=== PATIENT | female | born 1955 | race Caucasian/White ===

== ENCOUNTER 2017-11-26 13:11 | Emergency (ER) | payer OTHER ==
[~2017-11-26] VITALS: Ht 160 cm; Wt 113.4 kg
[~2017-11-26 13:11] MED LIST: ABAT250V; ACIDOPHILUS LA1 EACH PO; BUSP15 PO; CEFD300 PO; DIPH25 PO; FLUC200 PO; GLIP10 PO; GLIP5 PO; HYDCHL25 PO; HYDCHL50 PO; IBUP400 PO; IBUP800 PO; LEVFLO500 PO; LEVSOD150 PO; LISI20 PO; LORA2 PO; LOSHYD; METF500; Micro-K10 MEQ PO; NAPR550 PO; NITR100 PO; OXYACE5T PO; PROM25 PO; Pedi-Dri 100,0060 GM TOP; THYR60 PO; TIZA4 PO; TRAZ100 PO; Temazepam15 MG PO; Zanaflex4 M1 PO; [UNRECOGNIZED DRUG - OTHER]
[2017-11-26 14:00] LABS: BASOPHILS ABSOLUTE AUTO 0.04 K/mm3 (0.00-0.23); BASOPHILS PERCENT AUTO 0 % (0-2); EOSINOPHILS ABSOLUTE AUTO 0.23 K/mm3 (0.00-0.68); EOSINOPHILS PERCENT AUTO 2 % (0-6); Hemoglobin 13.2 g/dL (11.5-16.0); IMMATURE GRAN ABSOLUTE AUTO 0.08 K/mm3 (0.00-0.10); IMMATURE GRAN PERCENT AUTO 1 % (0-1); LYMPHOCYTES ABSOLUTE AUTO 1.89 K/mm3 (0.84-5.20); LYMPHOCYTES PERCENT AUTO 14 % (21-46); MONOCYTES ABSOLUTE AUTO 1.01 K/mm3 (0.16-1.47); MONOCYTES PERCENT AUTO 7 % (4-13); Mean Corpuscular HGB 30.3 pg (26.0-34.0); Mean Corpuscular Volume 92 fL (80-100); Mean Platelet Volume 10.6 fL (9.1-12.4); NEUTROPHILS PERCENT AUTO 76 % (41-73); Platelet Count 246 K/mm3 (150-400); RDW Standard Deviation 42.9 fL (35.1-46.3); Red Blood Cell Count 4.36 M/mm3 (3.80-5.20); White Blood Cell Count 13.75 K/mm3 (4.00-11.30)
[2017-11-26 14:07] LABS: Source, Urine Clean Catch
[2017-11-26 14:14] LABS: Bilirubin, Urine Neg (Neg); Blood, Urine Neg (Neg); Glucose Qualitative, Urine Neg (Neg); Ketones, Urine Neg (Neg); Leukocyte Esterase, Urine Neg (Neg); Nitrite, Urine Neg (Neg); Protein, Urine 1+ (Neg); Urobilinogen, Urine NORM (Normal)
[2017-11-26 14:14] LABS: Alanine Aminotransfer (ALT/SGP 25 U/L (12-78); Albumin, Blood 3.8 g/dL (3.4-5.0); Albumin/Globulin Ratio 0.8 (0.8-1.8); Alk Phos 133 U/L (50-136); Anion Gap 10 mmol/L (6-16); Aspartate Aminotrans (AST/SGOT 13 U/L (12-37); Bilirubin, Total 0.5 mg/dL (0.1-1.0); Blood Urea Nitrogen 26 mg/dL (8-24); Bun/Creatinine Ratio 21.1 (12.0-20.0); CO2, Blood 20 mmol/L (21-32); Calcium, Blood 9.1 mg/dL (8.5-10.1); Chloride, Blood 103 mmol/L (98-108); Creatinine, Blood 1.23 mg/dL (0.40-1.00); Ethanol (Alcohol), Blood, Med <3 mg/dL; Glomerular Filtration Rate 47 (60-); Glucose, Blood 156 mg/dL (70-99); Sodium, Blood 133 mmol/L (136-145); Total Protein, Blood 8.8 g/dL (6.4-8.2)
[2017-11-26 14:20] LABS: Appearance, Urine Clear (Clear); Color, Urine Yellow (P-Yellow)
[2017-11-26 14:24] LABS: U Amphetamine Screen Not Detected; U Barbituate Screen Not Detected; U Benzodiazapine Screen DETECTED; U Cannabinoids Screen Not Detected; U Cocaine Screen Not Detected; U Methadone Screen Not Detected; U Methamphetamine Screen Not Detected; U Opiates Screen Not Detected; U Phencyclidine Screen Not Detected
[2017-11-26 14:25] LABS: U Buprenorphine Screen Not Detected; U Oxycodone Screen Not Detected; U Propoxyphene Screen Not Detected
[2017-11-26 14:45] LABS: Salicylate 1.9 mg/dL (2.8-20.0)
[2017-11-26 14:52] LABS: Acetaminophen, Random <2.0 ug/mL (10.0-30.0)
== END 2017-11-26 16:08 | disposition home or self-care (01) ==
LOC: ER 13:11
PROVIDERS: Emergency Medicine
DX: T48.201A Poisoning by unspecified drugs acting on muscles, accidental (unintentional), initial encounter (principal); I10 Essential (primary) hypertension; E78.5 Hyperlipidemia, unspecified; E66.9 Obesity, unspecified; F41.9 Anxiety disorder, unspecified; Z95.2 Presence of prosthetic heart valve; Z90.49 Acquired absence of other specified parts of digestive tract; Z90.710 Acquired absence of both cervix and uterus
CPT/HCPCS: 36415; 71046; 80053; 82947; 85025; 93005; 93010; 99284; G0480

== ENCOUNTER → 2017-12-04 | Outpatient (CLI) | payer OTHER ==
[~2017-12-04] MED LIST changes: +CEPH500 PO; +METO50ER PO; +PANT40 PO; +TRAM50 PO
[2017-12-04 10:50] LABS: BASOPHILS ABSOLUTE AUTO 0.06 K/mm3 (0.00-0.23); BASOPHILS PERCENT AUTO 1 % (0-2); EOSINOPHILS ABSOLUTE AUTO 0.09 K/mm3 (0.00-0.68); EOSINOPHILS PERCENT AUTO 1 % (0-6); Hemoglobin 11.8 g/dL (11.5-16.0); IMMATURE GRAN ABSOLUTE AUTO 0.06 K/mm3 (0.00-0.10); IMMATURE GRAN PERCENT AUTO 1 % (0-1); LYMPHOCYTES ABSOLUTE AUTO 1.53 K/mm3 (0.84-5.20); LYMPHOCYTES PERCENT AUTO 12 % (21-46); MONOCYTES ABSOLUTE AUTO 0.98 K/mm3 (0.16-1.47); MONOCYTES PERCENT AUTO 8 % (4-13); Mean Corpuscular HGB 31.1 pg (26.0-34.0); Mean Corpuscular HGB Conc 33.7 g/dL (31.5-36.5); Mean Corpuscular Volume 92 fL (80-100); Mean Platelet Volume 9.8 fL (9.1-12.4); NEUTROPHILS ABSOLUTE AUTO 10.14 K/mm3 (1.96-9.15); NEUTROPHILS PERCENT AUTO 79 % (41-73); Platelet Count 273 K/mm3 (150-400); RDW Coefficient Variation 13.6 % (11.7-14.2); RDW Standard Deviation 45.6 fL (35.1-46.3); Red Blood Cell Count 3.79 M/mm3 (3.80-5.20); White Blood Cell Count 12.86 K/mm3 (4.00-11.30)
[2017-12-04 11:06] LABS: Albumin, Blood 3.4 g/dL (3.4-5.0); Albumin/Globulin Ratio 0.7 (0.8-1.8); Bilirubin, Total 0.4 mg/dL (0.1-1.0); Bun/Creatinine Ratio 22.1 (12.0-20.0); Calcium, Blood 9.7 mg/dL (8.5-10.1); Creatinine, Blood 0.95 mg/dL (0.40-1.00); Globulin, Blood 4.8 g/dL (2.2-4.0); Potassium, Blood 3.2 mmol/L (3.5-5.5); Total Protein, Blood 8.2 g/dL (6.4-8.2)
== END ==
LOC: LAB EV 10:47
PROVIDERS: Family Medicine
DX: N18.3 Chronic kidney disease, stage 3 (moderate) (principal)
CPT/HCPCS: 80053; 85025

== ENCOUNTER → 2018-05-02 | Outpatient (CLI) | payer OTHER ==
[~2018-05-02] MED LIST changes: -CEPH500 PO; -LISI20 PO; -METO50ER PO; -PANT40 PO; +Prinivil10 MG PO; -TRAM50 PO
== END ==
LOC: LAB SHORT 09:48 → LAB EV 09:48
DX: Z20.9 Contact with and (suspected) exposure to unspecified communicable disease (principal)
CPT/HCPCS: 87070

== ENCOUNTER 2018-05-16 15:44 | Inpatient (IN) | payer OTHER ==
[~2018-05-16] VITALS: Ht 160 cm; Wt 95.2 kg
[~2018-05-16 15:44] MED LIST changes: +LISI20 PO; -Prinivil10 MG PO
[2018-05-16 17:15] LABS: BASOPHILS ABSOLUTE AUTO 0.05 K/mm3 (0.00-0.23); BASOPHILS PERCENT AUTO 0 % (0-2); EOSINOPHILS ABSOLUTE AUTO 0.11 K/mm3 (0.00-0.68); EOSINOPHILS PERCENT AUTO 1 % (0-6); Hemoglobin 8.7 g/dL (11.5-16.0); IMMATURE GRAN ABSOLUTE AUTO 0.04 K/mm3 (0.00-0.10); IMMATURE GRAN PERCENT AUTO 0 % (0-1); LYMPHOCYTES ABSOLUTE AUTO 2.42 K/mm3 (0.84-5.20); LYMPHOCYTES PERCENT AUTO 18 % (21-46); MONOCYTES ABSOLUTE AUTO 1.03 K/mm3 (0.16-1.47); MONOCYTES PERCENT AUTO 8 % (4-13); Mean Corpuscular HGB 29.1 pg (26.0-34.0); Mean Corpuscular HGB Conc 32.2 g/dL (31.5-36.5); Mean Corpuscular Volume 90 fL (80-100); NEUTROPHILS ABSOLUTE AUTO 9.65 K/mm3 (1.96-9.15); NEUTROPHILS PERCENT AUTO 73 % (41-73); Platelet Count 353 K/mm3 (150-400); RDW Coefficient Variation 14.2 % (11.7-14.2); RDW Standard Deviation 46.4 fL (35.1-46.3); Red Blood Cell Count 2.99 M/mm3 (3.80-5.20)
[2018-05-16 17:28] LABS: International Normalized Ratio 1.02; Prothrombin Time Results 10.5 Sec (9.7-11.5)
[2018-05-16 17:42] LABS: Alanine Aminotransfer (ALT/SGP 15 U/L (12-78); Albumin, Blood 3.3 g/dL (3.4-5.0); Albumin/Globulin Ratio 0.8 (0.8-1.8); Alk Phos 102 U/L (50-136); Anion Gap 10 mmol/L (6-16); Aspartate Aminotrans (AST/SGOT 8 U/L (12-37); Bilirubin, Total 0.2 mg/dL (0.1-1.0); Blood Urea Nitrogen 15 mg/dL (8-24); Bun/Creatinine Ratio 16.3 (12.0-20.0); CO2, Blood 21 mmol/L (21-32); Calcium, Blood 8.8 mg/dL (8.5-10.1); Chloride, Blood 108 mmol/L (98-108); Creatinine, Blood 0.92 mg/dL (0.40-1.00); Globulin, Blood 4.3 g/dL (2.2-4.0); Glomerular Filtration Rate >60 (60-); Glucose, Blood 104 mg/dL (70-99); Potassium, Blood 3.3 mmol/L (3.5-5.5); Sodium, Blood 139 mmol/L (136-145); Total Protein, Blood 7.6 g/dL (6.4-8.2)
[2018-05-16] MEDS ORDERED: CEPH500 PO (17:53)
[2018-05-16] MEDS ORDERED: METO50ER PO (17:56)
[2018-05-16] MEDS ORDERED: TRAM50 PO (17:56)
[2018-05-16 21:38] LABS: Hematocrit 31.9 % (33.0-51.0); Hemoglobin 10.2 g/dL (11.5-16.0)
[2018-05-17 03:02] LABS: Hematocrit 23.7 % (33.0-51.0); Hemoglobin 7.6 g/dL (11.5-16.0); Mean Corpuscular HGB 28.3 pg (26.0-34.0); Mean Corpuscular HGB Conc 32.1 g/dL (31.5-36.5); Mean Corpuscular Volume 88 fL (80-100); Mean Platelet Volume 10.9 fL (9.1-12.4); Platelet Count 319 K/mm3 (150-400); RDW Coefficient Variation 14.3 % (11.7-14.2); RDW Standard Deviation 46.2 fL (35.1-46.3); Red Blood Cell Count 2.69 M/mm3 (3.80-5.20); White Blood Cell Count 14.83 K/mm3 (4.00-11.30)
[2018-05-17 10:02] LABS: Percent Saturation 9.1 % (15.0-50.0)
[2018-05-17 16:46] LABS: Hematocrit 25.7 % (33.0-51.0); Hemoglobin 8.3 g/dL (11.5-16.0)
[2018-05-18 05:32] LABS: BASOPHILS ABSOLUTE AUTO 0.04 K/mm3 (0.00-0.23); BASOPHILS PERCENT AUTO 0 % (0-2); EOSINOPHILS ABSOLUTE AUTO 0.34 K/mm3 (0.00-0.68); EOSINOPHILS PERCENT AUTO 3 % (0-6); Hematocrit 27.7 % (33.0-51.0); Hemoglobin 8.9 g/dL (11.5-16.0); IMMATURE GRAN ABSOLUTE AUTO 0.06 K/mm3 (0.00-0.10); IMMATURE GRAN PERCENT AUTO 1 % (0-1); LYMPHOCYTES PERCENT AUTO 27 % (21-46); MONOCYTES ABSOLUTE AUTO 1.01 K/mm3 (0.16-1.47); MONOCYTES PERCENT AUTO 10 % (4-13); Mean Corpuscular HGB 28.5 pg (26.0-34.0); Mean Corpuscular HGB Conc 32.1 g/dL (31.5-36.5); Mean Corpuscular Volume 89 fL (80-100); Mean Platelet Volume 10.8 fL (9.1-12.4); NEUTROPHILS ABSOLUTE AUTO 5.96 K/mm3 (1.96-9.15); NEUTROPHILS PERCENT AUTO 58 % (41-73); Platelet Count 324 K/mm3 (150-400); RDW Coefficient Variation 14.6 % (11.7-14.2); RDW Standard Deviation 47.2 fL (35.1-46.3); Red Blood Cell Count 3.12 M/mm3 (3.80-5.20); White Blood Cell Count 10.21 K/mm3 (4.00-11.30)
[2018-05-18 05:50] LABS: Alanine Aminotransfer (ALT/SGP 13 U/L (12-78); Albumin/Globulin Ratio 0.7 (0.8-1.8); Alk Phos 100 U/L (50-136); Anion Gap 7 mmol/L (6-16); Aspartate Aminotrans (AST/SGOT 14 U/L (12-37); Bilirubin, Total 0.4 mg/dL (0.1-1.0); Blood Urea Nitrogen 12 mg/dL (8-24); Bun/Creatinine Ratio 16.1 (12.0-20.0); CO2, Blood 27 mmol/L (21-32); Calcium, Blood 8.5 mg/dL (8.5-10.1); Chloride, Blood 106 mmol/L (98-108); Creatinine, Blood 0.75 mg/dL (0.40-1.00); Globulin, Blood 4.2 g/dL (2.2-4.0); Glomerular Filtration Rate >60 (60-); Glucose, Blood 79 mg/dL (70-99); Potassium, Blood 3.7 mmol/L (3.5-5.5); Sodium, Blood 140 mmol/L (136-145); Total Protein, Blood 7.2 g/dL (6.4-8.2)
[2018-05-19 05:08] LABS: BASOPHILS ABSOLUTE AUTO 0.06 K/mm3 (0.00-0.23); BASOPHILS PERCENT AUTO 1 % (0-2); EOSINOPHILS ABSOLUTE AUTO 0.32 K/mm3 (0.00-0.68); EOSINOPHILS PERCENT AUTO 3 % (0-6); Hematocrit 27.2 % (33.0-51.0); Hemoglobin 8.5 g/dL (11.5-16.0); IMMATURE GRAN ABSOLUTE AUTO 0.03 K/mm3 (0.00-0.10); IMMATURE GRAN PERCENT AUTO 0 % (0-1); LYMPHOCYTES ABSOLUTE AUTO 1.88 K/mm3 (0.84-5.20); LYMPHOCYTES PERCENT AUTO 19 % (21-46); MONOCYTES ABSOLUTE AUTO 1.13 K/mm3 (0.16-1.47); MONOCYTES PERCENT AUTO 11 % (4-13); Mean Corpuscular HGB 28.1 pg (26.0-34.0); Mean Corpuscular HGB Conc 31.3 g/dL (31.5-36.5); Mean Corpuscular Volume 90 fL (80-100); NEUTROPHILS ABSOLUTE AUTO 6.57 K/mm3 (1.96-9.15); NEUTROPHILS PERCENT AUTO 66 % (41-73); RDW Coefficient Variation 14.5 % (11.7-14.2); RDW Standard Deviation 47.8 fL (35.1-46.3); Red Blood Cell Count 3.02 M/mm3 (3.80-5.20); White Blood Cell Count 9.99 K/mm3 (4.00-11.30)
[2018-05-19 05:18] LABS: Mean Platelet Volume 11.6 fL (9.1-12.4); Platelet Count 240 K/mm3 (150-400)
[2018-05-19 05:26] LABS: Anion Gap 10 mmol/L (6-16); Blood Urea Nitrogen 11 mg/dL (8-24); Bun/Creatinine Ratio 14.8 (12.0-20.0); CO2, Blood 26 mmol/L (21-32); Calcium, Blood 8.4 mg/dL (8.5-10.1); Chloride, Blood 104 mmol/L (98-108); Creatinine, Blood 0.74 mg/dL (0.40-1.00); Glomerular Filtration Rate >60 (60-); Glucose, Blood 83 mg/dL (70-99); Potassium, Blood 3.9 mmol/L (3.5-5.5); Sodium, Blood 140 mmol/L (136-145)
[2018-05-19] MEDS ORDERED: PANT40 PO (09:06)
== END 2018-05-19 10:04 | disposition home or self-care (01) | DRG 379 ==
LOC: ER 15:44 → PCU 15:45 → MEDS 05-18 15:28 → ENPENDDIS 05-19 08:42 → MEDS 05-19 10:04
PROVIDERS: Emergency Medicine; Internal Medicine; Internal Medicine Gastroenterology
PROC: 30233N1 Transfusion of Nonautologous Red Blood Cells into Peripheral Vein, Percutaneous Approach (ICD-10-PCS; 2018-05-17)
PROC: 0DB68ZX Excision of Stomach, Via Natural or Artificial Opening Endoscopic, Diagnostic (ICD-10-PCS; principal; 2018-05-18 10:00)
DX: K25.4 Chronic or unspecified gastric ulcer with hemorrhage (principal); D50.9 Iron deficiency anemia, unspecified; F55.8 Abuse of other non-psychoactive substances; E11.9 Type 2 diabetes mellitus without complications; E87.6 Hypokalemia; E03.9 Hypothyroidism, unspecified; F41.9 Anxiety disorder, unspecified; I10 Essential (primary) hypertension; E66.9 Obesity, unspecified; D72.829 Elevated white blood cell count, unspecified; R29.6 Repeated falls; Z95.3 Presence of xenogenic heart valve; Z68.35 Body mass index [BMI] 35.0-35.9, adult; Z79.899 Other long term (current) drug therapy; Z79.1 Long term (current) use of non-steroidal anti-inflammatories (NSAID)
CPT/HCPCS: 36415; 36430; 80048; 80053; 82272; 82728; 82947; 83540; 83550; 85014; 85018; 85025; 85027; 85610; 85730; 86850; 86900; 86901; 86920; 88305; 88342; 93005; 93010; 97110; 97116; 97162; 99285-25; C9113; G8978; G8979; G8980; J2060; J2405; J2916; J3010; J7030; J7120; P9016

== ENCOUNTER 2018-11-17 17:52 | Inpatient (IN) | payer MEDICARE ==
[~2018-11-17] VITALS: Ht 162.6 cm; Wt 100.4 kg
[~2018-11-17 17:52] MED LIST changes: +CEPH500 PO; +METO50ER PO; +PANT40 PO; +TRAM50 PO
[2018-11-17 18:10] LABS: BASOPHILS ABSOLUTE AUTO 0.02 K/mm3 (0.00-0.23); BASOPHILS PERCENT AUTO 0 % (0-2); EOSINOPHILS PERCENT AUTO 0 % (0-6); Hematocrit 36.8 % (33.0-51.0); Hemoglobin 11.9 g/dL (11.5-16.0); IMMATURE GRAN ABSOLUTE AUTO 0.03 K/mm3 (0.00-0.10); IMMATURE GRAN PERCENT AUTO 0 % (0-1); LYMPHOCYTES ABSOLUTE AUTO 1.35 K/mm3 (0.84-5.20); LYMPHOCYTES PERCENT AUTO 10 % (21-46); MONOCYTES ABSOLUTE AUTO 1.77 K/mm3 (0.16-1.47); MONOCYTES PERCENT AUTO 13 % (4-13); Mean Corpuscular HGB 30.3 pg (26.0-34.0); Mean Corpuscular HGB Conc 32.3 g/dL (31.5-36.5); Mean Corpuscular Volume 94 fL (80-100); Mean Platelet Volume 10.4 fL (9.1-12.4); NEUTROPHILS ABSOLUTE AUTO 10.02 K/mm3 (1.96-9.15); NEUTROPHILS PERCENT AUTO 76 % (41-73); Platelet Count 240 K/mm3 (150-400); RDW Coefficient Variation 14.8 % (11.7-14.2); RDW Standard Deviation 51.6 fL (35.1-46.3); Red Blood Cell Count 3.93 M/mm3 (3.80-5.20); White Blood Cell Count 13.19 K/mm3 (4.00-11.30)
[2018-11-17 18:45] LABS: International Normalized Ratio 1.11; Prothrombin Time Results 11.7 Sec (9.7-11.5)
[2018-11-17 18:57] LABS: Alanine Aminotransfer (ALT/SGP 34 U/L (12-78); Albumin, Blood 3.3 g/dL (3.4-5.0); Albumin/Globulin Ratio 0.7 (0.8-1.8); Alk Phos 108 U/L (50-136); Anion Gap 11 mmol/L (6-16); Aspartate Aminotrans (AST/SGOT 40 U/L (12-37); Bilirubin, Total 1.1 mg/dL (0.1-1.0); Blood Urea Nitrogen 39 mg/dL (8-24); Bun/Creatinine Ratio 48.2 (12.0-20.0); CO2, Blood 19 mmol/L (21-32); Calcium, Blood 8.8 mg/dL (8.5-10.1); Chloride, Blood 111 mmol/L (98-108); Creatinine, Blood 0.81 mg/dL (0.40-1.00); Ethanol (Alcohol), Blood, Med <3 mg/dL; Globulin, Blood 4.5 g/dL (2.2-4.0); Glomerular Filtration Rate >60 (60-); Glucose, Blood 160 mg/dL (70-99); Potassium, Blood 3.4 mmol/L (3.5-5.5); Sodium, Blood 141 mmol/L (136-145); Total Protein, Blood 7.8 g/dL (6.4-8.2)
[2018-11-17 19:00] LABS: Acetaminophen, Random <2.0 ug/mL (10.0-30.0)
[2018-11-17 19:13] LABS: Appearance, Urine Clear (Clear); Bilirubin, Urine Neg (Neg); Blood, Urine Neg (Neg); Color, Urine Yellow (P-Yellow); Glucose Qualitative, Urine Neg (Neg); Ketones, Urine 2+ (Neg); Leukocyte Esterase, Urine Neg (Neg); Nitrite, Urine Neg (Neg); Protein, Urine 2+ (Neg); Specific Gravity, Urine 1.025 (1.003-1.022); Urobilinogen, Urine 1+ (Normal)
[2018-11-17 19:24] LABS: Bacteria Few /hpf; Red Blood Cells, Urine 0-2 /hpf (0-2); Squamous Epithelial Cells Mod /hpf (Few)
[2018-11-17 19:27] LABS: U Amphetamine Screen Not Detected; U Barbituate Screen Not Detected; U Benzodiazapine Screen Not Detected; U Buprenorphine Screen Not Detected; U Cannabinoids Screen Not Detected; U Cocaine Screen Not Detected; U Methadone Screen Not Detected; U Methamphetamine Screen Not Detected; U Opiates Screen Not Detected; U Oxycodone Screen Not Detected; U Phencyclidine Screen Not Detected; U Propoxyphene Screen Not Detected
[2018-11-17 20:18] LABS: Magnesium, Blood 2.3 mg/dL (1.6-2.4)
[2018-11-17 20:19] LABS: Thyroid Stimulating Hormone 0.026 uIU/mL (0.360-4.800)
[2018-11-17 20:34] LABS: PCO2 Arterial 37 mmHg (35-45); PO2 Arterial 76.9 mmHg (80-100)
[2018-11-17 20:46] LABS: Creatine Kinase MB 6.3 ng/mL (0.0-3.6); Creatine Kinase MB Index 0.7 (0.0-4.0)
--- NOTE | 2018-11-17 20:48 | NUR ---
REPORT RECEIVED REPORT RECEIVED FROM SUSIE MCKEON RN
--- NOTE | 2018-11-17 21:10 | NUR ---
ARRIVAL TO UNIT PT TO ICU 11 VIA ER BED. PT INTUBATED AND SEDATED. SEE FLOWSHEETS. HR ELEVATED, DILTIAZEM INFUSING. BP STABLE. 02 SAT'S STABLE ON VENT. MILD TEMP PRESENT. PT MINIMALLY RESPONSIVE, DOES WITHDRAW TO SOME PAINFUL STIMULI. SEE ASSESSMENTS.
[2018-11-17 21:40] LABS: Free Thyroxine 1.35 ng/dL (0.70-1.60)
[2018-11-17 21:41] LABS: Triiodothyronine, Free 1.54 pg/mL (2.18-3.98)
--- NOTE | 2018-11-17 22:07 | NUR ---
DR. CORNEJO AT BEDSIDE DR. CORNEJO AT BEDSIDE FOR ASSESSMENT. PT'S SON, KRISTIAN ALSO AT BEDSIDE AND UPDATED BY DR. CORNEJO. ER EKG AND EMAR REVIEWED WITH DR. CORNEJO. ADMIN/HOLD ER ORDERS PER DR. CORNEJO. PROPOFOL OFF AND TO REMAIN OFF UNLESS PT REQUIRES TO TOLERATE VENT.
--- NOTE | 2018-11-17 22:30 | NUR ---
OG OUTPUT OG OUTPUT NOTED TO CHANGE FROM YELLOW TINGED TO DARK RED. DR. CORNEJO NOTIFIED. ORDER TO CONTINUE WITH LOW INTERMITTENT SUCTION AND OK TO GIVE MEDS THROUGH TUBE.
--- NOTE | 2018-11-17 22:40 | NUR ---
MED REC PT'S SON, FINESSE EXPLAINS THAT THE MOST RECENT DISCHARGE MED LIST IS CURRENT BUT THAT HE IS UNSURE OF PT'S LAST ADMIN AND DOSE.
--- NOTE | 2018-11-17 22:45 | NUR ---
REPEAT EKG REPEAT EKG COMPLETED. REVIEWED BY DR. CORNEJO.
[2018-11-17 23:42] LABS: PCO2 Arterial 32.2 mmHg (35-45); PO2 Arterial 97.9 mmHg (80-100); pH Blood Arterial 7.34 (7.35-7.45)
[2018-11-18 01:32] LABS: Adenovirus Not Detected (NOT DETECT); Bordetella pertussis Not Detected (NOT DETECT); Chlamydophila pneumoniae Not Detected (NOT DETECT); Coronavirus 229E Not Detected (NOT DETECT); Coronavirus HKU1 Not Detected (NOT DETECT); Coronavirus NL63 Not Detected (NOT DETECT); Coronavirus OC43 Not Detected (NOT DETECT); Human Metapneumovirus Not Detected (NOT DETECT); Human Rhinovirus/Enterovirus Not Detected (NOT DETECT); Influenza A Not Detected (NOT DETECT); Influenza A/2009-H1 Not Detected (NOT DETECT); Influenza A/H1 Not Detected (NOT DETECT); Influenza A/H3 Not Detected (NOT DETECT); Influenza B Not Detected (NOT DETECT); Mycoplasma pneumoniae Not Detected (NOT DETECT); Parainfluenza Virus 1 Not Detected (NOT DETECT); Parainfluenza Virus 2 Not Detected (NOT DETECT); Parainfluenza Virus 3 Not Detected (NOT DETECT); Parainfluenza Virus 4 Not Detected (NOT DETECT); Respiratory Syncytial Virus Not Detected (NOT DETECT)
--- NOTE | 2018-11-18 02:35 | NUR ---
ETT TUBE PLACEMENT PER CHEST X-RAY AND DR. CORNEJO RECOMMENDATION, ETT TO BE TAKEN OUT 2-3 CM. PER MALICK, RT ETT PLACEMENT WAS FIXED IN ERR. ETT CURRENTLY AT 21 CM.
[2018-11-18 04:34] LABS: BASOPHILS ABSOLUTE AUTO 0.01 K/mm3 (0.00-0.23); BASOPHILS PERCENT AUTO 0 % (0-2); EOSINOPHILS ABSOLUTE AUTO 0.01 K/mm3 (0.00-0.68); EOSINOPHILS PERCENT AUTO 0 % (0-6); Hemoglobin 10.5 g/dL (11.5-16.0); IMMATURE GRAN ABSOLUTE AUTO 0.05 K/mm3 (0.00-0.10); IMMATURE GRAN PERCENT AUTO 0 % (0-1); LYMPHOCYTES ABSOLUTE AUTO 0.59 K/mm3 (0.84-5.20); LYMPHOCYTES PERCENT AUTO 4 % (21-46); MONOCYTES ABSOLUTE AUTO 0.45 K/mm3 (0.16-1.47); MONOCYTES PERCENT AUTO 3 % (4-13); Mean Corpuscular HGB 30.4 pg (26.0-34.0); Mean Corpuscular HGB Conc 32.8 g/dL (31.5-36.5); Mean Corpuscular Volume 93 fL (80-100); Mean Platelet Volume 10.4 fL (9.1-12.4); NEUTROPHILS ABSOLUTE AUTO 12.22 K/mm3 (1.96-9.15); NEUTROPHILS PERCENT AUTO 92 % (41-73); Platelet Count 217 K/mm3 (150-400); RDW Coefficient Variation 14.9 % (11.7-14.2); RDW Standard Deviation 50.8 fL (35.1-46.3); Red Blood Cell Count 3.45 M/mm3 (3.80-5.20); White Blood Cell Count 13.33 K/mm3 (4.00-11.30)
[2018-11-18 04:49] LABS: PCO2 Arterial 31.1 mmHg (35-45); PO2 Arterial 78.8 mmHg (80-100); pH Blood Arterial 7.43 (7.35-7.45)
[2018-11-18 04:53] LABS: Alanine Aminotransfer (ALT/SGP 31 U/L (12-78); Albumin, Blood 2.7 g/dL (3.4-5.0); Albumin/Globulin Ratio 0.7 (0.8-1.8); Alk Phos 100 U/L (50-136); Anion Gap 11 mmol/L (6-16); Aspartate Aminotrans (AST/SGOT 31 U/L (12-37); Bilirubin, Total 0.5 mg/dL (0.1-1.0); Blood Urea Nitrogen 34 mg/dL (8-24); Bun/Creatinine Ratio 43.8 (12.0-20.0); CO2, Blood 20 mmol/L (21-32); CPK Creatine Kinase 684 U/L (26-193); Calcium, Blood 8.4 mg/dL (8.5-10.1); Chloride, Blood 112 mmol/L (98-108); Creatinine, Blood 0.78 mg/dL (0.40-1.00); Globulin, Blood 3.9 g/dL (2.2-4.0); Glomerular Filtration Rate >60 (60-); Glucose, Blood 337 mg/dL (70-99); Magnesium, Blood 2.2 mg/dL (1.6-2.4); Phosphorus, Blood 2.8 mg/dL (2.5-4.9); Potassium, Blood 3.5 mmol/L (3.5-5.5); Sodium, Blood 143 mmol/L (136-145); Total Protein, Blood 6.6 g/dL (6.4-8.2)
--- NOTE | 2018-11-18 06:23 | NUR ---
SUMMARY VITALS STABLE THROUGHOUT NIGHT. PT SLOWLY MORE RESPONSIVE. STILL NO PURPOSEFUL MOVEMENTS. SEE ASSESSMENTS. OTHERIWSE, NO CHANGES. PT TOLERATING CARES AND TURNS. EEG PLANNED FOR THIS MORNING.
--- NOTE | 2018-11-18 09:00 | NUR ---
ASSUMED CARE: REPORT RECEIVED FROM KRISTINE Leigh RN. ASSUMED CARE OF THIS PT AT APPROX 0700. ROUNDING COMPLETE, PT RESTING QUIETLY AT THAT TIME W/O SEDATION. DUCT INSTALLER IN ROOM TO COMPLETE STUDY. HE NOTIFIES THIS RN THAT THERE IS NO NEUROLOGIST ON UNTIL TOMORROW & THAT THE STUDY WILL NOT BE READ UNTIL THAT TIME. BEHAVIOR INTERVENTIONIST ALSO IN ROOM THIS AM, ECHO COMPLETE. THE PT's MENTATION HAS IMPROVED SLIGHTLY, SHE WITHDRAWS ALL EXTREMITIES TO PAINFUL STIMULI & FOLLOWS SOME COMMANDS WELL, SUCH OPENING HER EYES WHEN PROMPTED TO W/ HER SON IN THE ROOM. WILL CONTINUE TO MONITOR & UPDATE NEEDED.
--- NOTE | 2018-11-18 09:05 | NUR ---
DR RONDON IN TO ASSESS PT. UPDATED DR WITH PT'S CURRENT PLAN OF CARE. PT TO HAVE CARDIO CONSULT. SEE ANY OTHER NEW ORDERS.
--- NOTE | 2018-11-18 10:00 | NUR ---
PROVIDER CONSULT: DR. KHANNA IN ROOM TO SEE PT FOLLOWING CONSULT ORDER THIS AM. POC IS DISCUSSED & THE PROVIDER HAS UPDATED THE PT's SON, FINESSE. DR. KHANNA STS TO D/C THE HEPARIN GTT AT THIS TIME & ORDERS ARE PLACED FOR AN EKG IN THE AM. WILL CONTINUE TO MONITOR & UDPATE NEEDED.
--- NOTE | 2018-11-18 18:44 | NUR ---
SHIFT SUMMARY: NO ACUTE CHANGES SINCE INITIAL ASSESSMENT & UPDATES. PT SHOWS CONTINUED IMPROVEMENT W/ MENTATION, BECOMING MORE ALERT THIS EVENING. OPENING HER EYES TO PROMPTS AT TIMES. PROPOFOL PER FLOWSHEET FOR SEDATION. PT CONTINUES TO WITHDRAW TO PAINFUL STIMULI. VENT SETTINGS UNCHANGED: AC 14, TV 450, PEEP 5, FiO2 25%. NSR-ST NOTED ON MONITOR W/ HR 90-100s. BP STABLE. OGT TO LIS W/ MINIMAL OUTPUT, 50 ML THIS SHIFT. TEMP DORMAN DRAINING DARK YELLOW URINE. PHOTO DOCUMENTATION OF WOUNDS COMPLETE & IN CHART. THE SON IS AT BEDSIDE THIS EVENING & IS SUPPORTIVE W/ CARE. WILL CONTINUE TO MONITOR & REPORT OFF TO ONCOMING RN.
--- NOTE | 2018-11-18 19:40 | NUR ---
ASSUME CARE: REPORT RECIEVED FROM OFF GOING RN NACHO. MONITOR INTACT SHOWING SINUS RHYTHM. HEART RATE 80'S-90'S. REMAINS INTUBATED, SEDATED AND RESTRAINED. VENT SETTINGS AC 14, TV 400, FIO2 25% PEEP 5, SPO2 95-98% RATE 14-17. LUNG SOUNDS CLEAR UPPER LOBES WITH DECREASED COARSE SOUNDS IN THE BASES. OG TO LIS WITH DARK GREEN/YELLOW RETURN THIN WHITE SECRETIONS SX WITH ORAL CARE. FAMILY AT BEDSIDE ATTENTIVE TO CARES. CODE WORD ESTABLISHED. ABDOMEN SOFT WITH BOWEL SOUNDS FOUR QUADS. DORMAN PATENT DRAINING NERY URINE. GENERALIZED DEPENDENT EDEMA ESPECIALLY TO EXTREMITIES WHICH ARE ELEVATED ON PILLOWS. CONTINUE TO MONITOR AND REPORT CHANGE IN PATIENT CONDITION. REMAINS IN SOFT WRIST RESTRAINTS TO PREVENT INADVERTENT REMOVAL OF LINES/TUBES.
[2018-11-19 04:09] LABS: BASOPHILS ABSOLUTE AUTO 0.03 K/mm3 (0.00-0.23); BASOPHILS PERCENT AUTO 0 % (0-2); EOSINOPHILS ABSOLUTE AUTO 0.08 K/mm3 (0.00-0.68); EOSINOPHILS PERCENT AUTO 1 % (0-6); Hematocrit 27.5 % (33.0-51.0); Hemoglobin 8.6 g/dL (11.5-16.0); IMMATURE GRAN ABSOLUTE AUTO 0.05 K/mm3 (0.00-0.10); IMMATURE GRAN PERCENT AUTO 0 % (0-1); LYMPHOCYTES PERCENT AUTO 20 % (21-46); MONOCYTES ABSOLUTE AUTO 1.63 K/mm3 (0.16-1.47); MONOCYTES PERCENT AUTO 13 % (4-13); Mean Corpuscular HGB 29.2 pg (26.0-34.0); Mean Corpuscular HGB Conc 31.3 g/dL (31.5-36.5); Mean Corpuscular Volume 93 fL (80-100); Mean Platelet Volume 10.5 fL (9.1-12.4); NEUTROPHILS ABSOLUTE AUTO 8.12 K/mm3 (1.96-9.15); NEUTROPHILS PERCENT AUTO 66 % (41-73); Platelet Count 200 K/mm3 (150-400); RDW Coefficient Variation 15.3 % (11.7-14.2); RDW Standard Deviation 52.5 fL (35.1-46.3); Red Blood Cell Count 2.95 M/mm3 (3.80-5.20); White Blood Cell Count 12.41 K/mm3 (4.00-11.30)
[2018-11-19 04:40] LABS: Anion Gap 9 mmol/L (6-16); Blood Urea Nitrogen 31 mg/dL (8-24); Bun/Creatinine Ratio 36.2 (12.0-20.0); CO2, Blood 22 mmol/L (21-32); Calcium, Blood 8.1 mg/dL (8.5-10.1); Chloride, Blood 117 mmol/L (98-108); Creatinine, Blood 0.86 mg/dL (0.40-1.00); Glomerular Filtration Rate >60 (60-); Glucose, Blood 110 mg/dL (70-99); Potassium, Blood 2.9 mmol/L (3.5-5.5); Sodium, Blood 148 mmol/L (136-145)
[2018-11-19 05:16] LABS: PO2 Arterial 83.1 mmHg (80-100); pH Blood Arterial 7.46 (7.35-7.45)
--- NOTE | 2018-11-19 06:45 | NUR ---
SHIFT SUMMARY: REMAINS INTUBATED, SEDATED, AHD RESTRAINED. VENT SETTINGS REMAINS AC 14, TV 400, FIO2 25% PEEP 5, RATE 14-17, SPO2 95-98% LUNG SOUNDS CLEAR UPPER LOBES WITH COSARSE DECREASED SOUNDS IN THE BASES. OG TO LIS WITH 350ML GREENISH YELLOW RETURN. THICK CLEAR SECREATIONS SX WITH ORAL CARE. ABDOMEN SOFT WITH BOWEL SOUNDS FOUR QUADS. DORMAN PATENT DRAINING NERY URINE. REMAINS IN SOFT WRIST RESTRAINTS TO PREVENT INADVERTENT REMOVAL OF LINES/TUBES. GENERALIZED DEPENDENT EDEMA ESPECIALLY TO EXTREMITIES WHICH ARE ELEVATED ON PILLOWS. BLISTER NOTED ON R HAND. CONTINUE TO MONITOR AND REPORT CHANGE IN PATIENT CONDITION. RED AREAS TO PANNUS AND GROIN AREA
--- NOTE | 2018-11-19 07:45 | NUR ---
ASSESSMENT- Assumed care of pt. Pt. unresponsive to verbal commands. sl.upgoing great toes to touch. AMADO. On Vent- AC 14 TV 400 FI02 25% PEEP 5. RR 16-21 with SA02 >95%. VSS Afebrile. Epifanio wrist restraints intact. Ext. x4 elevated on pillows. Son at bedside.
[2018-11-19 08:45] LABS: Vancomycin, Trough 19.5 ug/mL (5.0-10.0)
--- NOTE | 2018-11-19 08:49 | NUR ---
SEDATION- Propafol decreased to 25 mcg.
--- NOTE | 2018-11-19 09:08 | NUR ---
Propafol decreased to 20 mcg.
--- NOTE | 2018-11-19 09:46 | NUR ---
Propafol dec to 15 mcg. Occ movement of head and legs noted.
--- NOTE | 2018-11-19 13:00 | NUR ---
PICC- TRIPLE PICC PLACED INTO LEFT UPPER ARM. LT, ARM WAS EDEMATOUS BEFORE PICC INSERTION. ARM CIRC. WAS 43.5 CM AT TIME OF INSERTION.
--- NOTE | 2018-11-19 17:11 | NUR ---
SEDATION- PROPAFOL HAS REMAINED AT 15 MCG T/O DAY. PT. HAS REMAINED UNRESPONSIVE TO ANY COMMANDS BUT HAS SPONT. RAISED HEAD OFF BED AT TIMES. RR ON VENT IS INCREANSING TO 30'S BRIEFLY IN THE LAST LITTLE WHILE. WILL MONITOR AND MAY HAVE TO INC. PROPAFOL IF CON'T TO RISE.
[2018-11-19 17:48] LABS: Hematocrit 25.1 % (33.0-51.0); Hemoglobin 7.9 g/dL (11.5-16.0)
--- NOTE | 2018-11-19 19:15 | NUR ---
ASSUME CARE: REPORT RECIEVED FROM OFF GOING RN JOSUE. VENT SETTINGS AC 14, TV 400, FIO2 25%, PEEP 5, RATE 19. SPO2 94%. LUNG SOUNDS UPPER LOBES CLEAR/COARSE WITH DECREASED SOUNDS IN THE BASES. MONITOR INTACT SHOWING SINUS RHYTHM HEART RATE 80'S-100'S.TUBE FEEDING OF HI VITAL INFUSING AT 20ML/HR PER OG. LESS THAN 2M; RESIDUAL REFED. WITH ORAL CARE. ABDOMEN SOFT WITH BOWEL SOUNDS FOUR QUADS. DORMAN PATENT DRAINING NERY URINE. PEDAL PULSES PRESENT. REMAINS IN SOFT WRIST RESTRAINTS TO PREVENT INADVERTENT REMOVAL OF LINES/TUBES. OCC ATTEMPTS TO LIFT HEAD OFF PILLOW, RAISES EYEBROWS, AND MOVES L FOOT TO TACTILE STIMULI NO PURPOSFUL MOVEMENT OR FOLLOWING REQUESTS . SON AT BEDSIDE. REMINDED TO BRING IN HOME MEDS IN AM. CONTINUE TO MONITOR AND REPORT CHANGE IN PATIENT CONDITION.MODERATE THICK WHITE SECRETIONS SX WITH ORAL CARE. BLISTERS NOTED TO R HAND.
[2018-11-20 03:35] LABS: BASOPHILS ABSOLUTE AUTO 0.03 K/mm3 (0.00-0.23); BASOPHILS PERCENT AUTO 0 % (0-2); EOSINOPHILS ABSOLUTE AUTO 0.33 K/mm3 (0.00-0.68); EOSINOPHILS PERCENT AUTO 4 % (0-6); Hematocrit 26.5 % (33.0-51.0); Hemoglobin 8.4 g/dL (11.5-16.0); IMMATURE GRAN ABSOLUTE AUTO 0.02 K/mm3 (0.00-0.10); IMMATURE GRAN PERCENT AUTO 0 % (0-1); LYMPHOCYTES ABSOLUTE AUTO 1.79 K/mm3 (0.84-5.20); LYMPHOCYTES PERCENT AUTO 21 % (21-46); MONOCYTES PERCENT AUTO 11 % (4-13); Mean Corpuscular HGB 30.4 pg (26.0-34.0); Mean Corpuscular HGB Conc 31.7 g/dL (31.5-36.5); Mean Corpuscular Volume 96 fL (80-100); Mean Platelet Volume 9.6 fL (9.1-12.4); NEUTROPHILS ABSOLUTE AUTO 5.38 K/mm3 (1.96-9.15); NEUTROPHILS PERCENT AUTO 64 % (41-73); Platelet Count 166 K/mm3 (150-400); RDW Coefficient Variation 15.4 % (11.7-14.2); RDW Standard Deviation 54.3 fL (35.1-46.3); Red Blood Cell Count 2.76 M/mm3 (3.80-5.20); White Blood Cell Count 8.45 K/mm3 (4.00-11.30)
[2018-11-20 03:50] LABS: Magnesium, Blood 1.9 mg/dL (1.6-2.4)
[2018-11-20 03:51] LABS: Anion Gap 9 mmol/L (6-16); Blood Urea Nitrogen 27 mg/dL (8-24); Bun/Creatinine Ratio 34.7 (12.0-20.0); CO2, Blood 22 mmol/L (21-32); Calcium, Blood 7.4 mg/dL (8.5-10.1); Chloride, Blood 120 mmol/L (98-108); Creatinine, Blood 0.78 mg/dL (0.40-1.00); Glomerular Filtration Rate >60 (60-); Glucose, Blood 95 mg/dL (70-99); Phosphorus, Blood 4.2 mg/dL (2.5-4.9); Potassium, Blood 3.3 mmol/L (3.5-5.5); Sodium, Blood 151 mmol/L (136-145)
--- NOTE | 2018-11-20 06:30 | NUR ---
SHIFT SUMMARY REMAINS INTUBATED,SEDATED, AND RESTRAINED. VENT SETTINGS AC 14, TV 400, FIO2 25%, PEEP 5, RATE 20'S, SPOW 96-98% LUNG SOUNDS CLEAR/SOARSE. WITH DECREASED SOUNDS IN THE BASES. BLOOD TINGED SEDCRETIONS SX WITH ORAL CARE MOD AMT PER ETT. TUBE FEEDING CONTINUES TO INFUSE HI VITAL AT 30ML/HR WITH RESIDUALS LESS THAN 2ML REFED. ABDOMEN SOFT WITH BOWEL SOUNDS FOUR QUADS. DORMAN PATENT DRAINING NERY URINE. REMAINS IN SOFT WRIST RESTRAINTS TO PREVENT INADVERTENT REMOVAL OF LINES/TUBES.BLISTER NOTED TO R HAND AND L AXILIA AREA. CONTINUE TO MONITOR AND REPORT CHANGE IN PATIENT CONDITION
--- NOTE | 2018-11-20 08:30 | NUR ---
RECEIVED REPORT AND ASSUMED CARE OF PATIENT. SHE APPEARS COMFORTABLE. PT DOES NOT RESPOND TO VERBAL STIMULI, SHE DOES WITHDRAW TO PAINFUL STIMULI, WHEN PROVIDING CARE SHE WITHDRAWS IN A POSTURING LIKE MOTION, SHOULDERS SHRUG UP AND ARMS EXTEND. ELBOWS AND KNEES ARE RIGID AND NO MOVEMENT IS NOTED IN UPPER OR LOWER EXTREMITIES. PT SQUINTS EYES TO LIGHT STIMULI, GAZE REMAINS UP WHEN ASSESSED. TURNED PROPOFOL OFF TO ASSESS AND DETERMINE IF PT CAN FOLLOW DIRECTIONS. VENT SETTINGS AT AC: 14/400/5/25%. COARSE IN UPPER LOBES B/L AND DIM IN LOWER LOBES. PT IS DOUBLE STACKING BREATHS ON AND OFF OF PROPOFOL. BLISTER ON RT PINKY POPPED AT SOME POINT THIS AM, DRAINAGE NOTED AND FOUL ODOR NOTICED. BANDAGED RIGHT HAND AND APPLIED MEPILEX TO AXILLARY AREA OF LEFT ARM AND UPPER LEFT FLANK AREA. DORMAN PATENT AND DRAINING TO GRAVITY.
--- NOTE | 2018-11-20 09:10 | NUR ---
DR VIVAR IN TO SEE PATIENT, NO CHANGES AT THIS TIME.
--- NOTE | 2018-11-20 09:38 | NUR ---
SON OF PATIENT FINESSE CALLED TO CHECK ON HIS MOM THIS MORNING. GAVE UPDATE ON CONDITION. HE STATES THAT HE THINKS HE FIGURED OUT HER INSURANCE AND WILL BRING THAT IN WITH HER MEDS LATER ON TODAY.
--- NOTE | 2018-11-20 11:05 | NUR ---
DR LA IN TO SEE THE PATIENT. SHE ORDERED FREE WATER TO BE INCREASED TO 100 ML Q4[address] SHE WILL PL[address] ADDITIONAL ORDERS, POC IS TO DIURESE PATIENT TODAY AND START ON SOLUMEDROL.
--- NOTE | 2018-11-20 11:11 | NUR ---
ADVANCED TUBE FEEDING TO 40 ML/HOUR, CURRENTLY AT GOAL RATE. FREE WATER INCREASE PROGRAMED.
--- NOTE | 2018-11-20 14:28 | NUR ---
Met with Mariaa's son Leigh at bedside. He is quiet and withdrawn. He admits he is not really sure what is going on with his mom or what to expect going forward. He has not contacted his brother who lives out of state, because Leigh is hopeful "there's no reason to worry him." Clearly, this is a man who loves his mom. He appears overwhelmed and naive about illness. Leigh would benefit from a calm, clear explaination of what may have happend and what to expect going forward. Leigh seemed distant and denied the need for prayer or any spiritual support. Apparently, he works nights and comes to the hospital briefly in the afternoon. I will remain available.
[2018-11-20] MEDS ORDERED: Glipizide ER5 MG PO (14:58)
[2018-11-20 16:37] LABS: Potassium, Blood 3.6 mmol/L (3.5-5.5)
--- NOTE | 2018-11-20 16:39 | NUR ---
DINH WILKERSON PULLED BACK PICC LINE [address] LA ORDER. DRESSING CHANGED AND LINE SECURED. NOW AT 11 CM.
--- NOTE | 2018-11-20 17:33 | NUR ---
SHIFT SUMMARY: PT HAS BEEN OFF OF PROPOFOL SINCE THIS MORNING DURING ASSESSMENT. PT HAS TOLERATED BEING INTUBATED WITHOUT SEDATION THROUGHOUT THE SHIFT. BLOOD PRESSURE INCREASED SOME, GAVE ONE DOSE OF FENTANYL AND WILL CONTINUE TO MONITOR AND GIVE HYDRALAZINE IF NEEDED. PT CONTINUES TO BE INTUBATED, VENT SETTINGS ARE AC: 14/400/5/25%, RR HAS BEEN IN 20'S TODAY. TUBE FEEDINGS INCREASED TO GOAL RATE OF 40 ML/HR AND H20 INCREASED TO 100 ML Q4. PT IS RESTRAINED B/L UPPER WRISTS. SON IN TO SEE HIS MOM TODAY, HE SPOKE WITH DR. LA AND RECEIVED UPDATE ON CONDITION. HE WAS TEARFUL ABOUT CONDITION AND DECIDED TO CONTACT FAMILY TO UPDATE THEM ON PT CONDITION AND SITUATION. DORMAN PATENT AND DRAINING TO GRAVITY, DIURESED LARGE AMOUNT OF URINE T/O SHIFT. WILL CONTINUE TO MONITOR AND GIVE REPORT TO FINA TAO.
--- NOTE | 2018-11-20 19:20 | NUR ---
[place] of Care: Patient intubated, ventilator to AC 14/400/25/5, O2-95%, VSS. Currently on no sedation to better assess neuro status, tolerating ventilator without difficulty but occasionally stacks a few breaths. Patient occasionally opens eyes to verbal stimuli, but unable to follow any commands. Occasionally lifts head from pillow, and spontaneously opens eyes. Pupils equal and reactive, but slight nystagmus noted, not tracking. Positive corneal and plantar reflex, resist oral care. Tube feed per OG at goal of 40ml/hr, 100ml flush q4hr, will assess residual q4hr. Yoder cath patent and intact, draining light yellow clear urine. PICC line to BENEDICTO and bilateral peripheral IV's patent and intact. Plan to keep patient off sedation medications as long as she appears comfortable and tolerates ventilator, allowing for more accurate neuro assessments. Will continue to monitor for pain, comfort, safety.
[2018-11-21 03:37] LABS: BASOPHILS PERCENT AUTO 0 % (0-2); EOSINOPHILS PERCENT AUTO 0 % (0-6); Hematocrit 29.1 % (33.0-51.0); Hemoglobin 9.4 g/dL (11.5-16.0); IMMATURE GRAN ABSOLUTE AUTO 0.04 K/mm3 (0.00-0.10); IMMATURE GRAN PERCENT AUTO 1 % (0-1); LYMPHOCYTES ABSOLUTE AUTO 0.62 K/mm3 (0.84-5.20); LYMPHOCYTES PERCENT AUTO 9 % (21-46); MONOCYTES ABSOLUTE AUTO 0.29 K/mm3 (0.16-1.47); MONOCYTES PERCENT AUTO 4 % (4-13); Mean Corpuscular HGB 30.2 pg (26.0-34.0); Mean Corpuscular HGB Conc 32.3 g/dL (31.5-36.5); Mean Corpuscular Volume 94 fL (80-100); NEUTROPHILS ABSOLUTE AUTO 5.62 K/mm3 (1.96-9.15); NEUTROPHILS PERCENT AUTO 86 % (41-73); Platelet Count 183 K/mm3 (150-400); RDW Coefficient Variation 14.8 % (11.7-14.2); RDW Standard Deviation 51.6 fL (35.1-46.3); Red Blood Cell Count 3.11 M/mm3 (3.80-5.20); White Blood Cell Count 6.57 K/mm3 (4.00-11.30)
[2018-11-21 03:53] LABS: Anion Gap 8 mmol/L (6-16); Blood Urea Nitrogen 26 mg/dL (8-24); Bun/Creatinine Ratio 35.8 (12.0-20.0); CO2, Blood 26 mmol/L (21-32); Calcium, Blood 8.1 mg/dL (8.5-10.1); Chloride, Blood 111 mmol/L (98-108); Creatinine, Blood 0.73 mg/dL (0.40-1.00); Glomerular Filtration Rate >60 (60-); Glucose, Blood 192 mg/dL (70-99); Potassium, Blood 3.7 mmol/L (3.5-5.5); Sodium, Blood 145 mmol/L (136-145)
[2018-11-21 04:45] LABS: PO2 Arterial 84.6 mmHg (80-100); pH Blood Arterial 7.45 (7.35-7.45)
--- NOTE | 2018-11-21 06:19 | NUR ---
Shift Summary: Patient shows no changes in neurological status throughout shift. Not following commands, occasionally lifts head from pillow, and opens eyes. Pupils equal and reactive, occasional slight nystagmus noted, and unable to track. Positive gag, corneal, and plantar reflexes. Continued on AC 14/400/5/25-30% FiO2 throughout shift, O2-91-95%. BP stable throughout shift, systolic 150's-170's, NSR 90's-110. Spontaneous breathing trial this morning on pressure support of 7, PEEP-5, tolerated well (see RT documentation). x2 prn fentanyl given for s/s of pain (facial grimace, restless), with good effect noted. Continuous feed residuals of 5,0,10ml. Yoder cath remains patent and intact, draining light yellow clear urine. PICC line remains patent and intact. Patient appears comfortable at this time. Will continue to monitor until report to day shift RN.
--- NOTE | 2018-11-21 08:53 | NUR ---
[facility] W/O SEDATION. FENT IV GIVEN LAST NIGHT AROUND 0200. PT MINIMALLY RESPONSIVE. RESPONDS ONLY TO NOXIOUS STIMULI E.G. ORAL CARE, MOVING EXTREMETIES. PT STIFFENS WITH PASSIVE MOVEMENT. PT GRIMACES W ORAL CARE AND BITES DOWN ON ETT AND ORAL SX. PT STACKS BREATHS ON VENT W RESP BETWEEN 14-24. PT HAS OCCASIONAL APNIC PERIODS ON VENT. PT UNPURPOSEFULLY LIFTS HEAD OFF OF PILLOW CAUSING VENT TO ALARM D/T BENDING OF ETT. PUPILS EQUAL AND REACTIVE WITH GAZE UPWARDS. PT HAS GROSS MOVEMENT ONLY OF EXTREMETIES. PT WITHDRAWALS FROM PAIN. FINE CRACKLES TO LLL, CLEAR OTHERWISE. GENERALIZED EDEMA T/O; LASIX IV GIVEN. HTN TREATED W BETA SAMANTHA.
--- NOTE | 2018-11-21 10:45 | NUR ---
PT SITTING UP PARTIALLY IN BED WITH EYES OPEN, EYES DO NOT TRACK, PT DOES NOT FOLLOW COMMANDS, PT DOES FLINCH APPROPRIATELY. MULTIPLE FAMILY MEMBERS AT BEDSIDE INCLUDING PT'S SON. TF TO BE TURNED UP TO 55; PROPOFOL IS NO LONGER RUNNING.
--- NOTE | 2018-11-21 11:25 | NUR ---
DR LA IN TO SEE PT, SEE NEW ORDERS. PT TO BE PLACED ON PS TOLERATED DURING DAY, AND AC AT NIGHT. CONSULT FOR NEUROLOGY TO SEE PT FOR ACUTE ENCEPHALOPATHY
--- NOTE | 2018-11-21 11:32 | NUR ---
DR CORBETT'S OFFICE CALLED FOR CONSULT
--- NOTE | 2018-11-21 11:42 | NUR ---
PT PLACED ON PS 7/5, TOLERATING WELL. TF WAS INCREASED TO GOAL RATE 55CC/HR
--- NOTE | 2018-11-21 15:04 | NUR ---
CT OF HEAD COMPLETE, NO CHANGE IN PT NEURO ASSESSMENT. ZESTRIL PT GIVEN PER ORDERS/HTN
--- NOTE | 2018-11-21 18:20 | NUR ---
DR CORBETT AT BEDSIDE, SON AT BEDSIDE. EXTENSIVE UPDATE GIVEN TO SON BY DR CORBETT. NO NEUROLOGICAL CHANGE THIS SHIFT.
--- NOTE | 2018-11-21 19:15 | NUR ---
[place] of Care: Patient currently on pressure support of 7, PEEP of 5, 25% FiO2, tolerating well. Good tidal volumes and respiratory rate, appears comfortable. Rt John states plan to switch patient back to AC mode early this shift. VSS, O2-93-95%. Patient did open eyes to verbal stimuli, but still unable to track, or follow any commands. Also continue to occasionally open eyes spontaneously and lift head from pillow, gross movement to all extremities. TF at goal rate of 55ml/hr, 100ml/hr flush. PICC line patent and intact. Yoder cath patent and intact, draining light yellow clear urine. Will continue to monitor for pain, comfort, safety.
[2018-11-22 03:51] LABS: BASOPHILS ABSOLUTE AUTO 0.02 K/mm3 (0.00-0.23); BASOPHILS PERCENT AUTO 0 % (0-2); EOSINOPHILS ABSOLUTE AUTO 0.18 K/mm3 (0.00-0.68); EOSINOPHILS PERCENT AUTO 2 % (0-6); Hematocrit 30.6 % (33.0-51.0); Hemoglobin 9.7 g/dL (11.5-16.0); IMMATURE GRAN ABSOLUTE AUTO 0.04 K/mm3 (0.00-0.10); IMMATURE GRAN PERCENT AUTO 0 % (0-1); LYMPHOCYTES ABSOLUTE AUTO 2.28 K/mm3 (0.84-5.20); LYMPHOCYTES PERCENT AUTO 20 % (21-46); MONOCYTES ABSOLUTE AUTO 1.03 K/mm3 (0.16-1.47); MONOCYTES PERCENT AUTO 9 % (4-13); Mean Corpuscular HGB Conc 31.7 g/dL (31.5-36.5); Mean Corpuscular Volume 95 fL (80-100); Mean Platelet Volume 10.1 fL (9.1-12.4); NEUTROPHILS PERCENT AUTO 68 % (41-73); Platelet Count 194 K/mm3 (150-400); RDW Coefficient Variation 14.6 % (11.7-14.2); RDW Standard Deviation 51.3 fL (35.1-46.3); Red Blood Cell Count 3.23 M/mm3 (3.80-5.20); White Blood Cell Count 11.25 K/mm3 (4.00-11.30)
[2018-11-22 04:06] LABS: Anion Gap 7 mmol/L (6-16); Blood Urea Nitrogen 33 mg/dL (8-24); Bun/Creatinine Ratio 45.7 (12.0-20.0); CO2, Blood 30 mmol/L (21-32); Calcium, Blood 8.2 mg/dL (8.5-10.1); Chloride, Blood 107 mmol/L (98-108); Creatinine, Blood 0.72 mg/dL (0.40-1.00); Glomerular Filtration Rate >60 (60-); Glucose, Blood 139 mg/dL (70-99); Magnesium, Blood 1.9 mg/dL (1.6-2.4); Phosphorus, Blood 3.5 mg/dL (2.5-4.9); Potassium, Blood 3.4 mmol/L (3.5-5.5); Sodium, Blood 144 mmol/L (136-145)
[2018-11-22 05:57] LABS: PCO2 Arterial 45.2 mmHg (35-45); PO2 Arterial 72.2 mmHg (80-100); pH Blood Arterial 7.44 (7.35-7.45)
--- NOTE | 2018-11-22 06:01 | NUR ---
Shift Summary: Continued on AC 14//25/5 throughout most of shift, tolerated well, O2-93-95%. RT John switched patient to pressure support of 7, PEEP-5 at approx 0530, and stated plan to keep patient on this mode as long as tolerated. No changes in neurological status noted throughout shift. Continues to open eyes but not tracking staff or following any commands. Gross movement to all extremities. PICC line remains patent and intact. Yoder cath remains patent and intact, draining light yellow clear urine. No s/s of pain or discomfort throughout shift. Will continue to monitor until report to day shift RN.
--- NOTE | 2018-11-22 08:14 | NUR ---
RECEIVED REPORT AND ASSUMED CARE OF PATIENT. PT DOES NOT OPEN EYES WITH ASSESSMENT AND IS NOT FOLLOWING DIRECTIONS. PT DOES WITHDRAW AND RESPOND TO PT CARE AND PAINFUL STIMULI. NO SEDATION ON AT THIS TIME. PT CONTINUES TO BE INTUBATED, SHE IS RUNNING ON PRESSURE SUPPORT OF 7 AND PEEP OF 5. MOVED PATIENT TO CHAIR. NO PURPOSEFUL MOVEMENT NOTED WITH ASSESSMENT. WILL CONTINUE TO MONITOR.
--- NOTE | 2018-11-22 09:34 | NUR ---
DR ANNE IN TO SEE PATIENT AND HER SON, FINESSE. CHANGED VENT SETTINGS BACK TO AC: 14/400/5/25%. PT RESPONDING WELL. NO OTHER SIGNIFICANT CHANGES, HE MAY ORDER ADDITIONAL K+ REPLACEMENT.
--- NOTE | 2018-11-22 10:34 | NUR ---
DECREASED TUBE FEED TO 45 ML/HOUR WITH 100 ML FLUSHES Q4 HRS.
--- NOTE | 2018-11-22 18:13 | NUR ---
PT FAMILY AT BEDSIDE. PT SEEMS TO REPOND TO FAMILY WITH EFFORT TO FOCUS ON HER SON WHEN HE TALKS ABOUT HER GRANDSONS. FAMILY PROVIDED PSYCHOSOCIAL SUPPORT AND PLAY MUSIC AND TALK ABOUT FAMILY AT BEDSIDE.
--- NOTE | 2018-11-22 18:17 | NUR ---
PT CONTINUES TO BE INTUBATED WITHOUT SEDATION. SHE IS NOT FOLLOWING DIRECTIONS OR TRACKING WITH EYES. AT ONE POINT TODAY WITH FAMILY IN ROOM SON THOUGHT HIS MOM WAS TRYING TO FOCUS ON HIM. CONTINUE TO PROVIDE SUPPORT TO FAMILY. VENT SETTINGS ARE AC: 14/400/5/25% RR 15-20'S. NS AT TKO AND ZOSYN ORDERED. TUBE FEEDINGS RUNNING AT 45 ML/HOUR AND H20 FLUSHES AT 100 ML Q4. DORMAN CATH PATENT AND DRAINING TO GRAVITY. WILL CONTINUE TO MONITOR AND GIVE REPORT TO FINA TAO.
--- NOTE | 2018-11-22 19:15 | NUR ---
ASSUMING CARE OF PT AT THIS TIME. PT REPORT RECEIVED AT BEDSIDE WITH OFFGOING NURSES, BRIANA RN AND OMAR RN. PT LAYING IN BED, INTUBATED, NO SEDATION UPON ENTERING THE ROOM. VS STABLE - SEE VS FS. PT DOES NOT APPEAR TO BE IN DISTRESS AT THIS TIME. WILL REVIEW PLAN OF CARE.
--- NOTE | 2018-11-22 19:30 | NUR ---
ASSESSMENT PT RESPONDS TO PAINFUL STIMULI, OCC RESPONDING TO VERBAL STIMULI, DOES NOT OPEN EYES, NORMAL FLEXION TO PAIN, DOES NOT NOD HEAD Y/N TO QUESTIONS, DOES NOT FOLLOW COMMANDS. PARK SENSATION. MINIMAL WEAK, GROSS MOVEMENT. PT CASANOVA. NO S/SX OF PAIN/DISCOMFORT NOTED AT THIS TIME. NO SEDATION. PT IN BILAT WRIST RESTRAINTS TO PROTECT VITAL LINES/CORDS/TUBES AND TO PREVENT SELF-EXTUBATION. LUNGS CLEAR, MIDDLE AND LOWER LOBES DIMINISHED. VENT SETTINGS: AC 14, TV 400, PEEP 5, FIO2 25%. OXY SAT >90%. RR 17. SUCTION VIA ETT: SMALL AMOUNTS OF THICK WHITE SECRETIONS. TEMP 99.5 - ROOM TEMP TURNED DOWN, BLANKETS REMOVED. NSR TO ST. HR 90'S TO 100'S. BP STABLE - SEE VS FS. STRONG RADIAL PULSES. FAINT TIBIAL AND PEDAL PULSES. WARM, PINK, DRY SKIN. LOTION AND NYSTATIN POWDER APPLIED. EDEMA NOTED. HYPOACTIVE BT X4 QUADRANTS. ABD MOD DIST, SOFT, NONTENDER. NO BM. BOWEL PROTOCOL. OG IN PLACE. TF: VHP @ GOAL RATE 45 ML/HR. RESIDUAL 0. F/C - CLEAR, YELLOW URINE NOTED. PICC BENEDICTO. NS TKO @ 10 ML/HR.
[2018-11-23 03:29] LABS: BASOPHILS ABSOLUTE AUTO 0.02 K/mm3 (0.00-0.23); BASOPHILS PERCENT AUTO 0 % (0-2); EOSINOPHILS PERCENT AUTO 1 % (0-6); Hematocrit 33.7 % (33.0-51.0); Hemoglobin 10.6 g/dL (11.5-16.0); IMMATURE GRAN ABSOLUTE AUTO 0.08 K/mm3 (0.00-0.10); IMMATURE GRAN PERCENT AUTO 1 % (0-1); LYMPHOCYTES ABSOLUTE AUTO 2.36 K/mm3 (0.84-5.20); LYMPHOCYTES PERCENT AUTO 17 % (21-46); MONOCYTES ABSOLUTE AUTO 1.29 K/mm3 (0.16-1.47); MONOCYTES PERCENT AUTO 10 % (4-13); Mean Corpuscular HGB Conc 31.5 g/dL (31.5-36.5); Mean Platelet Volume 10.2 fL (9.1-12.4); NEUTROPHILS ABSOLUTE AUTO 9.72 K/mm3 (1.96-9.15); NEUTROPHILS PERCENT AUTO 72 % (41-73); Platelet Count 210 K/mm3 (150-400); RDW Coefficient Variation 14.5 % (11.7-14.2); RDW Standard Deviation 49.3 fL (35.1-46.3); Red Blood Cell Count 3.65 M/mm3 (3.80-5.20); White Blood Cell Count 13.57 K/mm3 (4.00-11.30)
[2018-11-23 03:30] LABS: Mean Corpuscular Volume 92 fL (80-100)
[2018-11-23 03:48] LABS: Anion Gap 6 mmol/L (6-16); Blood Urea Nitrogen 37 mg/dL (8-24); Bun/Creatinine Ratio 50.1 (12.0-20.0); CO2, Blood 32 mmol/L (21-32); Calcium, Blood 8.5 mg/dL (8.5-10.1); Chloride, Blood 104 mmol/L (98-108); Creatinine, Blood 0.74 mg/dL (0.40-1.00); Glomerular Filtration Rate >60 (60-); Glucose, Blood 124 mg/dL (70-99); Phosphorus, Blood 3.9 mg/dL (2.5-4.9); Potassium, Blood 3.3 mmol/L (3.5-5.5); Sodium, Blood 142 mmol/L (136-145)
--- NOTE | 2018-11-23 04:53 | NUR ---
SHIFT ASSESSMENT NO ACUTE CHANGES NOTED T/O SHIFT. PT RESPONDS TO PAINFUL STIMULI, OCC RESPONDING TO VERBAL STIMULI, OPENED EYES TO PRESSURE THIS AM, NORMAL FLEXION TO PAIN, DOES NOT NOD HEAD Y/N TO QUESTIOSN, DOES NOT FOLLOW COMMANDS, NO TRACKING WITH EYES. PARK SENSATION. MINIMAL WEAKNESS, GROSS MOVEMENT. PT CASANOVA. NO S/SX OF PAIN/DISCOMOFRT NOTED T/O SHIFT. NO SEDATION. PT IN BILAT WRIST RESTRAINTS TO PROTECT VITAL LIENS/CORDS/TUBES AND TO PREVENT SELF-EXTUBATION. OCC COARSE UPPER LUBES THAT CLEARS WITH SUCTION. OTHERWISE LUNGS CLEAR MIDDLE AND LOWER LOBES DIMINISHED. VENT SETTINGS T/O SHIFT: AC 14, TV 400, PEEP 5, FIO2 25%. OXY SAT 90% AND GREATER. RR 14 TO 20'S. HARJINDER RT COMPLETING SBT THIS AM ON PRESSURE SUPPORT 10, PEEP 5, FIO2 25% - OXY SAT REMAINS 90% AND GREATER AND RR 15. SUCTION VIA ETT: SMALL AMOUNTS OF THICK WHITE SECRETIONS. TMAX 99.6 - FAN ON, ROOM TEMP DOWN, BLANKETS OFF. NSR TO ST. HR 80'S TO 100'S. BP STABLE - SEE VS FS. STRONG RADIAL PULSES. FAINT TIBIAL AND PEDAL PULSES. WARM, PINK, DRY SKIN. EDEMA NOTED. HYPOACTIVE BT X4 QUADRANTS. ABD MOD DIST, SOFT, NONTENDER. NO BM. BOWEL PROTOCOL. OG IN PLACE. TF: VHP @ GOAL RATE 45 ML/HR AND 100 ML FLUSH Q4 HR. RESIDUAL WNL. F/C - CLEAR, YELLOW URINE. PICC BENEDICTO - SL. WILL CONT TO MONITOR PT AND WILL PROVIDE BEDSIDE REPORT TO ONCOMING NURSE THIS AM.
[2018-11-23 05:45] LABS: PCO2 Arterial 42.5 mmHg (35-45); PO2 Arterial 71.3 mmHg (80-100); pH Blood Arterial 7.49 (7.35-7.45)
--- NOTE | 2018-11-23 08:41 | NUR ---
PT. IS UP IN CHAIR. PT. APPEARS TO BE DOING WELL ON SPONT. MODE AT THIS TIME. PT. IS NOT SEDATED.
--- NOTE | 2018-11-23 09:08 | NUR ---
RECEIVED REPORT AND ASSUMED CARE OF PATIENT. SHE IS RESTING, NON-RESPONSIVE THIS MORNING TO VERBAL STIMULI. NOT FOLLOWING DIRECTIONS AT THIS TIME, SHE DOES RESPOND TO PAINFUL STIMULI AND GRIMACES WITH ADL'S AND ORAL CARE. TUBE FEEDING RUNNING AT 45 ML/HR WITH 100 ML FLUSHES Q4. NS TKO. DORMAN DRAINING TO GRAVITY. PT UP IN CHAIR. VENT SETTINGS: PS: 7 PEEP 5, RR 12-16 AND TV 350-600. SPO2 >90%.
[2018-11-23 12:26] LABS: Source, Urine Catheter
[2018-11-23 12:33] LABS: Bilirubin, Urine Neg (Neg); Blood, Urine Neg (Neg); Glucose Qualitative, Urine Neg (Neg); Ketones, Urine Neg (Neg); Leukocyte Esterase, Urine Neg (Neg); Nitrite, Urine Neg (Neg); Protein, Urine Neg (Neg); Specific Gravity, Urine 1.005 (1.003-1.022); Urobilinogen, Urine NORM (Normal)
[2018-11-23 12:43] LABS: Appearance, Urine Clear (Clear); Color, Urine Pale Yellow (P-Yellow)
--- NOTE | 2018-11-23 18:27 | NUR ---
PT HAD FAMILY AT BEDSIDE THROUGHOUT THE DAY. SHE CONTINUES TO BE INTUBATED, VENT SETTINGS PRESSURE SUPPORT OF 7, PEEP 5, RR 13-16, TV'S 350-500, O2 SAT 90%>. PT HAS TOLERATED THE SETTINGS WELL THROUGHOUT THIS SHIFT. PT HAS BEEN UP TO THE CHAIR DURING THE SHIFT, MOVED BACK TO THE BED AND IS RESTING COMFORTABLE AT THIS TIME. SALINE LOCKED, TUBE FEED CONTINUING AT 45 ML/HR AND H20 100 ML Q4. WILL CONTINUE TO MONITOR AND GIVE REPORT TO FINA TAO.
--- NOTE | 2018-11-23 19:00 | NUR ---
ASSUMING CARE OF PT AT THIS TIME. PT REPORT RECEIVED AT BEDSIDE WITH OFFGOING NURSES, BRIANA RN AND OMAR RN. PT LAYING IN BED, INTUBATED, NO SEDATION. VS STABLE - SEE VS FS. PT DOES NOT APPEAR TO BE IN DISTRESS AT THIS TIME. WILL REVIEW PLAN OF CARE.
--- NOTE | 2018-11-23 19:10 | NUR ---
ASSESSMENT PT RESPONDS TO VERBAL AND PAINFUL STIMULI, OPENS EYES TO SOUND, DOES NOT TRACK WITH EYES, NORMAL FLEXION TO PAIN, DOES NOT NOD HEAD Y/N TO QUESTIONS, DOES NOT FOLLOW COMMANDS. PARK SENSATION. MINIMAL WEAK, GROSS MOVEMENT. PT CASANOVA. NO S/SX OF PAIN/DISCOMFORT NOTED AT THIS TIME. NO SEDATION. PT IN BILAT WRIST RESTRAINTS TO PROTET VITAL LINES/CORDS/TUBES AND TO PREVENT SELF-EXTUBATION. LUNGS CLEAR, MIDDLE AND LOWER LOBES DIMINIHSED. LUNGS OCC COARSE THAT CLEARS WITH SX. VENT SETTINGS: PS 7, PEEP 5, FIO2 25%. OXY SAT >90%. RR 13. SUCTION VIA ETT: SMALL AMOUNTS OF THICK WHITE SECRETIONS. TEMP 99.5 - ROOM TEMP DOWN, BLANKETS OFF, FAN ON. NSR. HR 90'S. BP STABLE - SEE VS FS. STRONG RADIAL PULSES. FAINT TIBIAL AND PEDAL PULSES. WARM, PINK, DRY SKIN. EDEMA NOTED. HYPOACTIVE BT X4 QUADRANTS. ABD MOD DIST, SOFT, NONTENDER. NO BM. BOWEL PROTOCOL. OG IN PLACE. TF: VHP @ GOAL RATE 45 ML/HR. RESIDUAL 0. F/C - CLEAR, YELLOW URINE NOTED. PICC BENEDICTO - SL.
[2018-11-24 04:15] LABS: BASOPHILS ABSOLUTE AUTO 0.02 K/mm3 (0.00-0.23); BASOPHILS PERCENT AUTO 0 % (0-2); EOSINOPHILS ABSOLUTE AUTO 0.13 K/mm3 (0.00-0.68); EOSINOPHILS PERCENT AUTO 1 % (0-6); Hematocrit 34.6 % (33.0-51.0); Hemoglobin 10.9 g/dL (11.5-16.0); IMMATURE GRAN ABSOLUTE AUTO 0.11 K/mm3 (0.00-0.10); IMMATURE GRAN PERCENT AUTO 1 % (0-1); LYMPHOCYTES PERCENT AUTO 11 % (21-46); MONOCYTES ABSOLUTE AUTO 1.57 K/mm3 (0.16-1.47); MONOCYTES PERCENT AUTO 7 % (4-13); Mean Corpuscular HGB 29.5 pg (26.0-34.0); Mean Corpuscular HGB Conc 31.5 g/dL (31.5-36.5); Mean Corpuscular Volume 94 fL (80-100); NEUTROPHILS ABSOLUTE AUTO 16.92 K/mm3 (1.96-9.15); NEUTROPHILS PERCENT AUTO 80 % (41-73); Platelet Count 242 K/mm3 (150-400); RDW Coefficient Variation 14.4 % (11.7-14.2); RDW Standard Deviation 49.2 fL (35.1-46.3); Red Blood Cell Count 3.69 M/mm3 (3.80-5.20); White Blood Cell Count 21.15 K/mm3 (4.00-11.30)
--- NOTE | 2018-11-24 04:45 | NUR ---
SHIFT ASSESSMENT NO ACUTE CHANGES NOTED T/O SHIFT. PT RESPONDS TO VERBAL AND PAINFUL STIMULI, OPENS EYES TO SOUND, DOES NOT TRACK WITH EYES, NORMAL FLEXION TO PAIN, DOES NOT NOD HEAD Y/N TO QUESTIONS, DOES NOT FOLLOW COMMANDS. PARK SENSATION. MINIMAL WEAK, GROSS MOVEMENT. PT CASANOVA. NO S/SX OF PAIN/DISCOMFORT NOTED T/O SHIFT. NO SEDATION. PT IN BILAT WRIST RESTRAINTS TO PROTECT VITAL LINES/CORDS/TUBES AND TO PREVENT SELF-EXTUBATION. LUNGS OCC COARSE THAT CLEAR WITH SX. OTHERWISE, LUNDS CLEAR, MIDDLE AND LOWER LOBES DIMINIHSED. VENT SETTINGS FROM ONCOMING SHIFT TO 0200: PS 7, PEEP 5, FIO2 25%. TV <200 NOTED AT 0200. AT 0200, SEBASTIAN RT CHANGED VENG SETTINGS: AC 14, TV 400, PEEP 5, FIO2 25%. OXY SAT REMAINED >90%. RR 12 TO 20'S. SUCTION VIA ETT: SMALL AMOUNTS OF THICK LIGHT YELLOW SECRETIONS NOTED THIS AM. TMAX 99.8 - ROOM TEMP DOWN, BLANKETS OFF, FAN ON. NSR TO ST. HR 80'S TO 100'S. BP STABLE - SEE VS FS. STRONG RADIAL PULSES. FAINT TIBIAL AND PEDAL PULSES. WARM, PINK, DRY SKIN. EDEMA NOTED. HYPOACTIVE BT X4 QUADRANTS. ABD MOD DIST, SOFT, NONTENDER. NO BM. BOWEL PROTOCOL. OG IN PLACE. TF: VHP @ GOAL RATE 45 ML/HR AND 100 ML FLUSH Q4 HR. RESIDUAL WNL. F/C - CLEAR, YELLOW URINE NOTED. PICC BENEDICTO - SL. WAITING FOR LAB RESULTS AT THIS TIME. WILL CONT TO MONIOTR PT AND WILL PROVIDE BEDSIDE REPORT TO ONCOMING NURSE THIS AM.
[2018-11-24 04:48] LABS: Alanine Aminotransfer (ALT/SGP 48 U/L (12-78); Albumin/Globulin Ratio 0.7 (0.8-1.8); Alk Phos 66 U/L (50-136); Anion Gap 7 mmol/L (6-16); Aspartate Aminotrans (AST/SGOT 28 U/L (12-37); Bilirubin, Total 0.4 mg/dL (0.1-1.0); Blood Urea Nitrogen 41 mg/dL (8-24); Bun/Creatinine Ratio 65.1 (12.0-20.0); CO2, Blood 31 mmol/L (21-32); Calcium, Blood 8.7 mg/dL (8.5-10.1); Chloride, Blood 105 mmol/L (98-108); Creatinine, Blood 0.63 mg/dL (0.40-1.00); Globulin, Blood 4.3 g/dL (2.2-4.0); Glomerular Filtration Rate >60 (60-); Glucose, Blood 150 mg/dL (70-99); Potassium, Blood 3.8 mmol/L (3.5-5.5); Sodium, Blood 143 mmol/L (136-145); Total Protein, Blood 7.3 g/dL (6.4-8.2)
--- NOTE | 2018-11-24 07:19 | NUR ---
RECEIVED REPORT AND ASSUMED CARE OF PATIENT. SHE CONTINUES TO BE INTUBATED, HER VENT SETTINGS ARE 14/400/5/25% RR 16. DORMAN CATH IS DRAINING TO GRAVITY. TUBE FEEDING 45 ML/HR WITH 100 ML WATER FLUSH Q4. PT IS NOT FOLLOWING DIRECTIONS AT THIS TIME.
--- NOTE | 2018-11-24 10:07 | NUR ---
DR ANNE IN TO SEE PATIENT. POC IS TO ADD REGLAN ONTO MAR AND ADD LEVAQUIN ABX. NO OTHER CHANGES ORDERED AT THIS TIME.
--- NOTE | 2018-11-24 11:18 | NUR ---
RECTAL TUBE: PT HAD LARGE BM, FORMED STOOL FOLLOWED BY LARGE AMOUNT OF LIQUID STOOL. PLACED RECTAL TUBE. PLACED 45 ML H2O IN BALLOON; HOWEVER, STOOL WAS PASSING AROUND THE TUBE, INCREASED BALLOON TO 60 ML H20. IRRIGATED THE TUBE WITH 100 ML H20, BROWN LIQUID STOOL RETURNING IN BAG.
--- NOTE | 2018-11-24 11:39 | NUR ---
PHONE CALL FROM BEST FRIEND PT'S BEST FRIEND, RAPHAEL, CALLED FOR UPDATE ON PT. OF NOTE, SHE STATES THAT THE PT IS A HEAVY DAILY DRINKER. SHE ALSO STATES THE PT HAD BEEN COMPLAINING OF FEELING SHORT OF BREATH FOR 3-4 DAYS PRIOR TO ADMIT, AND SHE STATES THE PT HAD CALLED HER THE NIGHT BEFORE ADMIT STATING SHE WAS GOING TO TAKE A SLEEPING PILL AND HAVE A BEER AND GO TO BED. SHE STATES SHE DID NOT HEAR FROM THE PT AGAIN AFTER THAT, WHICH IS UNUSUAL BECAUSE THEY NORMALLY TALKED MULTIPLE TIMES A DAY.
--- NOTE | 2018-11-24 16:02 | NUR ---
TRANSFERRED PATIENT TO [facility] FOR CPT. REPOSITIONED AND STARTED CPT THERAPY, PATIENT TOLERATED WELL. WILL CONTINUE TO MONITOR.
--- NOTE | 2018-11-24 17:56 | NUR ---
PT DID NOT HAVE SIGNIFICANT CHANGES THROUGHOUT THIS SHIFT. PT IS INTUBATED AND UNSEDATED. SHE IS NOT FOLLOWING DIRECTIONS, PT IS OPENING EYES LESS THIS SHIFT THAN YESTERDAY. TODAY RECTAL TUBE WAS PLACED. RECTAL AND DORMAN ARE BOTH DRAINING TO GRAVITY. CHANGED BED TO [facility] FOR CPT THERAPY TO BE INITIATED. PT IS TOLERATING WELL. VENT SETTINGS ARE AC: 14/400/5/25% WITH RR OF 16. SUCTIONING PRN, THICK YELLOW SECRETIONS BEING SUCTIONED. LUNG SOUNDS ARE COARSE IN UPPER LOBES. WILL CONTINUE TO MONITOR AND GIVE REPORT TO NOC RN.
--- NOTE | 2018-11-24 18:00 | NUR ---
DISCUSSED B/P AND FLUID BALANCE WITH DR. ANNE. HE DISCONTINUED LASIX AT THIS TIME AND WE WILL CONTINUE TO MONITOR.
--- NOTE | 2018-11-24 19:15 | NUR ---
ASSUMING CARE OF PT AT THIS TIME. PT REPORT RECEIVED AT BEDSIDE WITH OFFGOING NURSES, BRIANA RN AND OMAR RN. PT LAYING IN BED, SLEEPING UPON ENTERING THE ROOM. VS STABLE - SEE VS FS. PT DOES NOT APPEAR TO BE IN DISTRESS AT THIS TIME. WILL REVIEW PLAN OF CARE.
--- NOTE | 2018-11-24 19:30 | NUR ---
ASSESSMENT PT RESPONDS TO VERBAL AND PAINFUL STIMULI, OPENS EYES TO SOUND, DOES NOT TRACK WITY EYES, NORMAL FLEXION TO PAIN, DOES NOT NOD HEAD Y/N TO QUESTIONS, DOES NOT FOLLOW COMMANDS. PARK SENSTION. MINIMAL WEAK, GROSS MOVEMENT. PT CASANOVA. NO S/SX OF PAIN/DISCOMOFRT NOTED AT THIS TIME. NO SEDATION. PT IN BILAT WRIST RESTRAINTS TO PROTECT VITAL LINES/CORDS/TUBES AND TO PREVENT SELF-EXTUBATION. LUNGS CLEAR, MIDDLE AND LOWER LOBES DIMINISHED. LUNGS OCC COARSE THAT CLEARS WITH SX. VENT SETTINGS: AC 14, TV 400, PEEP 5, FIO2 25%. OXY SAT >90%. RR 16. SUCTION VIA ETT: SMALL AMOUNTS OF THICK WHITE TO LIGHT YELLOW SECRETIONS. TEMP 99.7 - ROOM TEMP DOWN, BLANKETS OFF, FAN ON. NSR. HR 90'S. BP STABLE - SEE VS FS. STRONG RADIAL PULSES. FAINT TIBIAL AND PEDAL PULSES. WARM, PINK, DRY SKIN. EDEMA NOTED. HYPOACTIVE BT X4 QUADRANTS. ABD MOD DIST, SOFT, NONTENDER. FLEXISEAL IN PLACE - BROWN LIQUID STOOL NOTED. OG INP LACE. TF: VHP @ GOAL RATE 45 ML/HR AND 100 ML FLUSH Q4 HR. F/C - CLEAR, YELLOW URINE NOTED. PICC BENEDICTO - SL.
--- NOTE | 2018-11-24 21:40 | NUR ---
DR. ANNE PT'S SBP 70'S TO 110'S. DR. ANNE ORDERED 500 ML NS BOLUS IF MAP <65. WILL CONT TO MONITOR VS.
[2018-11-25 03:47] LABS: Hematocrit 33.6 % (33.0-51.0); Hemoglobin 10.8 g/dL (11.5-16.0); Mean Corpuscular HGB Conc 32.1 g/dL (31.5-36.5); Mean Corpuscular Volume 93 fL (80-100); Mean Platelet Volume 11.2 fL (9.1-12.4); Platelet Count 218 K/mm3 (150-400); RDW Coefficient Variation 14.6 % (11.7-14.2); RDW Standard Deviation 49.6 fL (35.1-46.3); White Blood Cell Count 22.63 K/mm3 (4.00-11.30)
[2018-11-25 04:15] LABS: Anion Gap 8 mmol/L (6-16); Blood Urea Nitrogen 46 mg/dL (8-24); CO2, Blood 29 mmol/L (21-32); Calcium, Blood 8.8 mg/dL (8.5-10.1); Chloride, Blood 104 mmol/L (98-108); Creatinine, Blood 0.74 mg/dL (0.40-1.00); Glomerular Filtration Rate >60 (60-); Glucose, Blood 157 mg/dL (70-99); Magnesium, Blood 2.2 mg/dL (1.6-2.4); Phosphorus, Blood 2.9 mg/dL (2.5-4.9); Potassium, Blood 4.3 mmol/L (3.5-5.5); Sodium, Blood 141 mmol/L (136-145)
--- NOTE | 2018-11-25 04:45 | NUR ---
SHIFT ASSESSMENT NO ACUTE CHANGES NOTED T/O SHIFT. PT RESPONDS TO VERBAL AND PAINFUL STIMULI, OPENS EYES TO SOUND, DOES NOT TRACK WITH EYES, NORMAL FLEXION TO PAIN,D OES NOT NOD HEAD Y/N TO QUESTIONS, DOES NOT FOLLOW COMMANDS. PARK SENSATION. MINIMAL WEAK, GROSS MOVEMENT. PT CASANOVA. NO S/SX OF PAIN/DISCOMFORT NOTED T/O SHIFT. NO SEDATION. PT IN BILAT WRIST RESTRAINTS TO PROTECT VITAL LINES/CORDS/TUBES AND TO PREVENT SELF-EXTUBATION. LUNGS CLEAR, MIDDLE AND LOWER LOBES DIMINISHED. LUNGS OCC COARSE THAT CLEARS WITH SX. VENT SETTINGS T/O SHIFT: AC 14, TV 400, PEEP 5, FIO2 25%. OXY SAT >90%. RR 14 TO 20'S. SEBASTIAN RT PLANNING TO COMPLETE SBT THIS AM. SUCTION VIA ETT: SMALL AMOUNTS OF THICK WHITE TO LIGHT YELLOW SECRETIONS. TMAX 100.5 - ROOM TEMP DOWN, BLANKETS OFF, FAN ON. NSR TO ST. HR 80'S TO 100'S. BP STABLE - SEE VS FS. STRONG RADIAL PULSES. FAINT TIBIAL AND PEDAL PULSES. WARM, PINK, DRY SKIN. EDEMA NOTED. HYPOACTIVE BT X4 QUADRANTS. ABD MOD DIST, SOFT, NONTENDER. FLEXISEAL IN PLACE - BROWN LIQUID STOOL NOTED. OG IN PLACE. TF: VHP @ GOAL RATE 45 ML/HR AND 100 ML FLUSH Q4 HR. F/C - CLEAR, YELLOW URINE NOTED. PICC BENEDICTO - SL. WILL CONT TO MONITOR PT AND WILL PROVIDE BEDSIDE REPORT TO ONCOMING NURSE THIS AM.
--- NOTE | 2018-11-25 05:08 | NUR ---
SBT RT TANISHA CHANGED VENT SETTINGS TO PRESSURE SUPPORT 7, PEEP 5, FIO2 25% FOR SBT.
[2018-11-25 05:24] LABS: BAND PERCENT MAN 3 % (0-8); BASOPHILS PERCENT MAN 0 % (0-2); EOSINOPHILS ABSOLUTE MAN 0.22 K/mm3 (0.00-0.68); EOSINOPHILS PERCENT MAN 1 % (0-6); LYMPHOCYTES ABSOLUTE MAN 2.71 K/mm3 (0.84-5.20); LYMPHOCYTES PERCENT MAN 12 % (21-46); MONOCYTES PERCENT MAN 4 % (4-13); NEUTROPHILS ABSOLUTE MAN 18.78 K/mm3 (1.96-9.15); SEG NEUTROPHILS PERCENT MAN 80 % (41-73); TOTAL CELLS COUNTED 100
[2018-11-25 05:44] LABS: PCO2 Arterial 40.5 mmHg (35-45); pH Blood Arterial 7.47 (7.35-7.45)
--- NOTE | 2018-11-25 08:00 | NUR ---
ASSESSMENT-Pt. con't to be unresponsive to verbal stimuli. Sl. withdrawl to painful stimulus. Ext. con't rigid and sl flexion of arms to painful stimuli. On vent- Spont with FI02 25%. RR 16-24. TV 400-800. SAO2 > 95%. TF con't at 45ml/hr.
--- NOTE | 2018-11-25 10:04 | NUR ---
Visitor at bedside. Pt. has been occ spont. raising head off pillow and opening eyes.
--- NOTE | 2018-11-25 12:58 | NUR ---
FAMILY- Dr. Devine has discussed status with two sisters and son Oscar today. They are considering code status change to DNR. They have also discussed that they would not be considering a trachand peg tube at this point.
--- NOTE | 2018-11-25 14:39 | NUR ---
CHAIR- PT. LIFTED TO CHAIR AND JOSEMANUEL WELL SO FAR.
--- NOTE | 2018-11-26 01:04 | NUR ---
ASSUMED CARE AT 1900. ALLEVIATED CONCERNS PER SON AND DISCUSSED CARE THROUGH NOC AND DECIDED TO GO HOME . VENT CONT ON SPONTANEOUS . PRESSURE SUPPORT 7 . PEEP 5 . FIO2 25%, TV 400 .RR 18. NO ACUTE VS ISSUES. OPENS EYES TO IRRITABLE STIMULI SUCH SX AND STERNAL RUB. NOTED CONJUGATE EYE MOVEMENT BUT NOT TO FOLLOW OR PURPOSEFUL. AMADO. FOLLOWS NO COMMANDS. NOTED DECEREBRATE TYPE RT ARM EXTENTION AT BEGINNING OF SHIFT ASSESSMENT. LATER NOTED RT ARM ONLY WHEN LEFT UNRESTRAINED DURING TURN, GROSS MOTOR SWINGING ARM TOWARD FACE. ANASARCA. EXTREMITIES VERY STIFF W/ ALL REPOSTIONING. LIFT USED. ALWAYS SEEMS TO OPEN EYES W/ SX AND GAG REFLEX FOR ORAL CARE. TUBE FEED CONT AT 45ML/HR W/ 100 H2O Q 4 HR , VERY MINIMAL RECTAL TUBE RETURNS,.LEFT IN IAN ANAL AREA WNL .
[2018-11-26 03:41] LABS: BASOPHILS ABSOLUTE AUTO 0.04 K/mm3 (0.00-0.23); BASOPHILS PERCENT AUTO 0 % (0-2); EOSINOPHILS ABSOLUTE AUTO 0.24 K/mm3 (0.00-0.68); EOSINOPHILS PERCENT AUTO 1 % (0-6); Hematocrit 32.7 % (33.0-51.0); Hemoglobin 10.3 g/dL (11.5-16.0); IMMATURE GRAN ABSOLUTE AUTO 0.13 K/mm3 (0.00-0.10); IMMATURE GRAN PERCENT AUTO 1 % (0-1); LYMPHOCYTES ABSOLUTE AUTO 2.56 K/mm3 (0.84-5.20); LYMPHOCYTES PERCENT AUTO 11 % (21-46); MONOCYTES ABSOLUTE AUTO 1.57 K/mm3 (0.16-1.47); MONOCYTES PERCENT AUTO 7 % (4-13); Mean Corpuscular HGB 29.3 pg (26.0-34.0); Mean Corpuscular HGB Conc 31.5 g/dL (31.5-36.5); Mean Corpuscular Volume 93 fL (80-100); Mean Platelet Volume 11.5 fL (9.1-12.4); NEUTROPHILS ABSOLUTE AUTO 17.94 K/mm3 (1.96-9.15); NEUTROPHILS PERCENT AUTO 80 % (41-73); Platelet Count 213 K/mm3 (150-400); RDW Coefficient Variation 14.5 % (11.7-14.2); RDW Standard Deviation 48.6 fL (35.1-46.3); Red Blood Cell Count 3.51 M/mm3 (3.80-5.20); White Blood Cell Count 22.48 K/mm3 (4.00-11.30)
[2018-11-26 03:58] LABS: Albumin, Blood 2.8 g/dL (3.4-5.0); Anion Gap 9 mmol/L (6-16); Blood Urea Nitrogen 34 mg/dL (8-24); Bun/Creatinine Ratio 52.5 (12.0-20.0); CO2, Blood 26 mmol/L (21-32); Calcium, Blood 8.5 mg/dL (8.5-10.1); Chloride, Blood 103 mmol/L (98-108); Creatinine, Blood 0.65 mg/dL (0.40-1.00); Glomerular Filtration Rate >60 (60-); Glucose, Blood 141 mg/dL (70-99); Phosphorus, Blood 2.6 mg/dL (2.5-4.9); Potassium, Blood 3.9 mmol/L (3.5-5.5); Sodium, Blood 138 mmol/L (136-145)
--- NOTE | 2018-11-26 06:07 | NUR ---
SHIFT SUMMARY. MANY TIMES THROUGH NOC RAISES HEAD OFF PILLOW AND PULLS BOTH ARMS AGAINST WRIST RESTRAINTS. MAP REMAINS WNL FOR FLUID PARAMETERS. 75ML RECTAL TUBE RETURNS. OPENS EYES FOR COUGHING EPISODES AND SCANT THICK WHITE SECRETIONS. SAME NON PURPOSEFUL STARING W/ EYES AND SOME CONJUGATE MOVEMENT BUT NO FOLLOWING. NO OPENING EYES TO VERBAL. NO RESIDUAL FOR TF. ONE SMALL BURST SVT AND NON SUSTAINED, SR PACS ALL NOC
--- NOTE | 2018-11-26 06:30 | NUR ---
PHOTOS TAKEN FOR WOUND UPDATES. RT HAND DRYING W/ SCAB TYPE LESIONS.UNDER LT AXILLA AREA MOIST WOUND , MEPILEX REMOVED AND PEELING OFF EFFECT HAS OCCURIED SLIGHTLY . ALSO W/ WOUND NEXT TO THIS WOUND , ON LATERAL BACK , THIS ALSO HAS OCCURED.CLEANSED ONLY W/ H2O AND DRIED WELL. MEPILEX APPLIED AGAIN. NO DSG ON RT HAND PLACED
--- NOTE | 2018-11-26 09:36 | NUR ---
CARE ASSUMED CARE AND REPORT ASSUMED FROM JEAN TAO. PT INTUBATED AND SEDATED. TOLERATING SPONTANEOUS MODE WITH PS 7, FIO2 25%. PT RESPONDS TO PAINFUL STIMULI AND OPENS EYES WHEN SUCTIONED. DOES NOT FOLLOW COMMANDS. EXTREMITIES RIGID AND TIGHT WITH LIMITED MOBILITY. NO S/S PAIN AT THIS TIME. OGT SECURED AND ATTAHCED TO TF AT GOAL RATE, 45 ML/HR. MD CORNEJO BEDSIDE AND DISCUSSED WITH SON PT'S CURRENT NEURO STATUS AND ADMINISTERING AMBIEN PER SON REQUEST. VSS. NSR 80S. IV SALINE LOCKED. BUE RESTRAINED. DORMAN CATH SECURED AND PATENT. WILL CONTINUE TO MONITOR.
--- NOTE | 2018-11-26 12:10 | NUR ---
REASSESSMENT NO CHANGES SINCE PRIOR ASSESSMENT. PT REMAINS UNRESPONSIVE EXCEPT TO PAINFUL STIMULI. REMAINS ON VENT SPONTANEOUS WITH PS 7, FIO2 25%. LUNG SOUNDS CLEAR AT THIS TIME. NO SEDATION. EXTREMITIES STIFF. PT TURNED AND HOB ELEVATED. REMAINS IN BUE RESTRAINTS. TOLERATING TF WITH MINIMAL RESIDUALS. VSS. WILL CONTINUE TO MONITOR.
--- NOTE | 2018-11-26 16:29 | NUR ---
REASSESSMENT NO SIGNIFICANT CHANGES. PT REMAINS OFF SEDATION AND UNRESPONSIVE EXCEPT TO PAIN. TOLERATING TF WITH 10 ML RESIDUAL. NO S/S PAIN. VSS. NSR 90S. BP STABLE. RESTRAINTS REMOVED AT 1600. WILL CONTINUE TO MONITOR.
--- NOTE | 2018-11-26 18:19 | NUR ---
SHIFT SUMMARY PT REMAINED INTUBATED ON SPONTANEOUS MODE WITH PS 7, FIO2 25%. PT UNRESPONSIVE EXCEPT TO PAIN. PT IS VERY RIGID AND STIFF WHEN ATTEMPTING TO MOVE. NO S/S PAIN. TURNED Q2H AND HOB ELEVATED. REMOVED FROM RESTRAINTS AT 1600. PT CONTINUES TO HAVE NO PURPOSEFUL MOVEMENTS AT THIS TIME. FAMILY BEDSIDE THROUGHOUT DAY. WILL GIVE BEDSIDE, HANDOFF REPORT TO FINA RN.
--- NOTE | 2018-11-26 23:00 | NUR ---
PT INTUBATED NO SEDATION. NO RESTRAINTS. PT DOES NOT MAKE PURPOSEFUL MOVEMENTS TOWARDS ETT. WILL SPONTANEOUSLY OPEN EYE'S BUT DOES NOT TRACK OR RESPOND TO VERBAL. NYSTAGMUS BOTH EYE'S AND WILL ROLL BACK IN HEAD AT TIMES. POSITIIVE BABINSKI IN R FOOT BUT L FOOT CURLS INWARD. ARMS MOVE AT TIMES BUT NOT TO ANY CERTAIN STIMULUS. SEE ASSESSMENT.
[2018-11-27 03:45] LABS: BASOPHILS ABSOLUTE AUTO 0.05 K/mm3 (0.00-0.23); BASOPHILS PERCENT AUTO 0 % (0-2); EOSINOPHILS ABSOLUTE AUTO 0.19 K/mm3 (0.00-0.68); EOSINOPHILS PERCENT AUTO 1 % (0-6); Hematocrit 33.6 % (33.0-51.0); Hemoglobin 10.7 g/dL (11.5-16.0); IMMATURE GRAN ABSOLUTE AUTO 0.12 K/mm3 (0.00-0.10); IMMATURE GRAN PERCENT AUTO 1 % (0-1); LYMPHOCYTES ABSOLUTE AUTO 2.66 K/mm3 (0.84-5.20); LYMPHOCYTES PERCENT AUTO 12 % (21-46); MONOCYTES ABSOLUTE AUTO 1.35 K/mm3 (0.16-1.47); MONOCYTES PERCENT AUTO 6 % (4-13); Mean Corpuscular HGB 29.6 pg (26.0-34.0); Mean Corpuscular HGB Conc 31.8 g/dL (31.5-36.5); Mean Corpuscular Volume 93 fL (80-100); Mean Platelet Volume 11.7 fL (9.1-12.4); NEUTROPHILS ABSOLUTE AUTO 18.23 K/mm3 (1.96-9.15); NEUTROPHILS PERCENT AUTO 81 % (41-73); Platelet Count 219 K/mm3 (150-400); RDW Coefficient Variation 14.3 % (11.7-14.2); RDW Standard Deviation 48.6 fL (35.1-46.3); Red Blood Cell Count 3.61 M/mm3 (3.80-5.20)
[2018-11-27 04:08] LABS: Albumin, Blood 2.9 g/dL (3.4-5.0); Anion Gap 8 mmol/L (6-16); Blood Urea Nitrogen 32 mg/dL (8-24); Bun/Creatinine Ratio 48.6 (12.0-20.0); CO2, Blood 24 mmol/L (21-32); Calcium, Blood 8.7 mg/dL (8.5-10.1); Chloride, Blood 105 mmol/L (98-108); Creatinine, Blood 0.66 mg/dL (0.40-1.00); Glomerular Filtration Rate >60 (60-); Glucose, Blood 158 mg/dL (70-99); Potassium, Blood 4.1 mmol/L (3.5-5.5); Sodium, Blood 137 mmol/L (136-145)
--- NOTE | 2018-11-27 06:41 | NUR ---
NO ACUTE CHANGES THIS SHIFT.
--- NOTE | 2018-11-27 07:41 | NUR ---
CARE ASSUMED CARE AND REPORT ASSUMED FROM KIKA TAO. PT INTUBATED ON SPONTANEOUS MODE, PS 7, FIO2 25%. NO SEDATION. PT UNRESPONSIVE AND NOT FOLLOWING COMMANDS. NO S/S PAIN AT THIS TIME. TOLERATING TF AT GOAL RATE, 45 ML/HR WITH 5 ML RESIDUAL. VSS. NSR 80S. BP STABLE. DORMAN CATH SECURED AND PATENT. RECTAL TUBE SECURED AND PATENT. HOB ELEVATED AND PT TURNED. PUPILS REACTIVE. PT NOT MOVING ANY EXTREMITIES. WILL CONTINUE TO MONITOR.
--- NOTE | 2018-11-27 12:15 | NUR ---
REASSESSMENT NO CHANGES SINCE PRIOR ASSESSMENT. PT REMAINS INTUBATED ON VENT PS 7, FIO2 25% LUNG SOUNDS CLEAR. VSS. NSR 90S. BP STABLE. TOLERATING TF AT GOAL RATE. RECTAL TUBE AND DORMAN CATH REMAIN SECURED AND PATENT. PT CONTINUES TO BE UNRESPONSIVE WITH INABILITY TO FOLLOW COMMANDS. WILL CONTINUE TO MONITOR.
--- NOTE | 2018-11-27 16:44 | NUR ---
REASSESSMENT NO CHANGES IN ASSESSMENT. SPOKE WITH SON REGARDING DNR STATUS AND TRACH VS END OF LIFE CARE. SON AGREED TO MAKE PT DNR STATUS. MD CORNEJO AWARE. VSS. WILL CONTINUE TO MONITOR.
--- NOTE | 2018-11-27 17:29 | NUR ---
Met with pt's son, Oscar, at bedside. He is still quite guarded, but opened up a bit more today. He states he has the love and support of his entire family. They all know this will be a poor outcome. Oscar plans to honor his mom's wishes to be allowed a peaceful if there is no hope of meaningful recovery. Oscar became tearful, but quickly stopped himself. I affirmed his obvious love and devotion and offered continued support. Oscar tells me he "plans on watching the Superbowl with mom" and then, if she's not better, will withdraw life support on Sunday. I will remain available.
--- NOTE | 2018-11-27 18:14 | NUR ---
SHIFT SUMMARY NO SIGNIFICANT EVENTS DURING SHIFT. PT REMAINS INTUBATED [facility] SEDATION. VENT PS 7, PEEP 5, FIO2 25% NO S/S PAIN DURING SHIFT. SON BEDSIDE THIS AFTERNOON, CODE STATUS CHANGED TO DNR. VSS ENTIRE SHIFT. REMAINS IN NSR, HR 80S-90S. BP STABLE. TOLERATED TF AT GOAL RATE WITH MINIMAL RESIDUALS. UNRESTRAINED ENTIRE SHIFT. HOB ELEVATED AND PT TURNED Q2H. WILL GIVE BEDSIDE, HANDOFF REPORT TO FINA RN.
--- NOTE | 2018-11-27 20:11 | NUR ---
PT INTUBATED NO SEDATION. PT WILL SPONT OPEN EYE'S BUT DOES NOT TRACK AND DOES NOT FOLLOW COMMANDS. GROSS MOTOR MOVEMENT OF ARMS BUT PT IS VERY RIGID. NO ATTEMPT MADE TOWARDS ETT AND REMAIN UNRESTRAINED. POSITIVE BABINSKI ON R FOOT BUT L FOOT CURLS INWARD. NO VENT SETTINGS HAVE BEEN CHANGED. NO FAMILY AT BEDSIDE. SEE ASSESSMENT.
[2018-11-28 04:14] LABS: BASOPHILS ABSOLUTE AUTO 0.05 K/mm3 (0.00-0.23); BASOPHILS PERCENT AUTO 0 % (0-2); EOSINOPHILS ABSOLUTE AUTO 0.18 K/mm3 (0.00-0.68); EOSINOPHILS PERCENT AUTO 1 % (0-6); Hematocrit 35.9 % (33.0-51.0); Hemoglobin 11.4 g/dL (11.5-16.0); IMMATURE GRAN PERCENT AUTO 1 % (0-1); LYMPHOCYTES ABSOLUTE AUTO 2.08 K/mm3 (0.84-5.20); LYMPHOCYTES PERCENT AUTO 10 % (21-46); MONOCYTES ABSOLUTE AUTO 1.19 K/mm3 (0.16-1.47); MONOCYTES PERCENT AUTO 6 % (4-13); Mean Corpuscular HGB Conc 31.8 g/dL (31.5-36.5); Mean Corpuscular Volume 95 fL (80-100); Mean Platelet Volume 11.3 fL (9.1-12.4); NEUTROPHILS ABSOLUTE AUTO 17.56 K/mm3 (1.96-9.15); NEUTROPHILS PERCENT AUTO 83 % (41-73); Platelet Count 214 K/mm3 (150-400); RDW Coefficient Variation 14.3 % (11.7-14.2); RDW Standard Deviation 49.9 fL (35.1-46.3); White Blood Cell Count 21.16 K/mm3 (4.00-11.30)
[2018-11-28 04:32] LABS: Albumin, Blood 2.8 g/dL (3.4-5.0); Anion Gap 9 mmol/L (6-16); Blood Urea Nitrogen 29 mg/dL (8-24); Bun/Creatinine Ratio 44.1 (12.0-20.0); CO2, Blood 23 mmol/L (21-32); Calcium, Blood 8.5 mg/dL (8.5-10.1); Chloride, Blood 106 mmol/L (98-108); Creatinine, Blood 0.66 mg/dL (0.40-1.00); Glomerular Filtration Rate >60 (60-); Glucose, Blood 156 mg/dL (70-99); Phosphorus, Blood 3.2 mg/dL (2.5-4.9); Potassium, Blood 3.8 mmol/L (3.5-5.5); Sodium, Blood 138 mmol/L (136-145)
--- NOTE | 2018-11-28 06:15 | NUR ---
NO CHANGES THIS SHIFT.
--- NOTE | 2018-11-28 09:20 | NUR ---
ASSUMED CARE: ASSUMED CARE FROM DINH ANAND. PT RESTING IN BED, OPENS EYES SPONTANEOUSLY, BUT DOES NOT TRACK ANYTHING. WITHDRAWS FROM PAIN, R ARM WITHDRAWS IN DECORTICATE TYPE POSTURING. LUNGS ARE COARSE, SMALL AMT OF THICK WHITE SPUTUM BEING SUCTIONED OUT OF ETT. SR, BP STABLE. TOLERATING TUBE FEEDING, RECTAL TUBE IN PLACE, BUT NO OUTPUT SINCE IT WAS CHANGED ON BRUSHER OPERATOR, JUST A SMALL AMT OF DRAINAGE ON PAD UNDERNEATH PT. DORMAN DRAINING. PT'S SON AND FRIEND IN THE ROOM. UPDATED THEM AND ANSWERED ALL QUESTIONS. CONTINUING TO MONITOR.
--- NOTE | 2018-11-28 17:57 | NUR ---
SHIFT SUMMARY: PT HAD NO ACUTE CHANGES THIS SHIFT. SHE CONTINUES TO HAVE NO PURPOSEFUL MOVEMENT AND IS NOT TRACKING ANYTHING IN THE ROOM WHEN HER EYES ARE OPEN. LUNGS ARE COARSE, STILL HAVING SM AMT OF THICK WHITE SPUTUM. SR, BP STABLE. TOLERATING TUBE FEED. SHE HAD SEVERAL FRIENDS AND FAMILY MEMBERS IN TODAY TO VISIT. DISCUSSED WITH THEM THE CONCERN OF PT NOT HAVING ANY NEUROLOGIC IMPROVEMENT AND THEY VERBALIZED UNDERSTANDING. PT'S SON WAS FULLY UPDATED TODAY WELL.
--- NOTE | 2018-11-28 23:30 | NUR ---
ASSUMING CARE RECEIVED PT REPORT FROM DINH GRIFFITH. PT IS VENTED AT THIS TIME. PT VENT IS CURRENTLY SET TO PRESSURE SUPPORT AT 7, PEEP 5, AND FIO2 25%. PT SPO2 IS MAINTAINING IN THE HIGH 90'S AT THIS TIME. PT LUNG SOUNDS ARE OCCASIONALLY COARSE. PT IS NOT ON ANY SEDATION AT THIS TIME. PT IS NOT IN ANY RESTRAINTS. PT WILL OPEN EYES TO NOXIOUS STIMULI AND SPONTANIOUSLY. PT DOES NOT APPEAR TO LOOK AT ANYTHING SPECIFICALLY AND DOES NOT APPEAR TO TRACK. PT GAZE IS UPWARD. PT WILL RECOIL TO NOXIOUS STIMULI. PT IS NOT FOLLOWING ANY COMMANDS AT THIS TIME PT EXTREMITES ARE STIFF WITH TURNS. PT IS RECEIVING TUBE FEEDNG OF VITAL HIGH SOLUTION AT GOAL RATE OF 45ML/HR. PT IS RECEIVING 100ML H2O FLUSHES Q4. PT HAS MINIMAL RESIDUALS AT THIS TIME. P THAS DORMAN TEMP PROBE AND RECTAL TUBE IN PLACE, BOTH PATENT AND DRAINING TO GRAVITY. PT IS SALINE LOCKED AT THIS TIME. PT HR AND BP APPEAR TO BE STABLE AT THIS TIME. ASSUMING CARE OF PT AT THE TIME OF SHIFT REPORT. WILL CONTINUE TO MONITOR PT.
--- NOTE | 2018-11-29 06:51 | NUR ---
SHIFT SUMMARY NOTE PT REMAINS VENTED AT THIS TIME. PT HAS REMAINED ON PRESSURE SUPPORT OF 7 WITH A PEEP OF 5 THROUGHOUT THE NIGHT, PT FIO2 REMAINS AT 25%. PT SPO2 HAS MAINTAINED IN THE HIGH 90'S THROUGHOUT THE NIGHT. PT HAS BEEN OFF SEDATION AND NOT IN RESTRAINTS ALL NIGHT. PT HAS OBSERVED TO MAKE GROSS MOVEMENTS OF THE RIGHT ARM ON OCCASION, AND WILL RECOIL FROM NOXIOUS STIMULI. PT HAS NOT BEEN OBSERVED TO REACH FOR LINES OR ET TUBE OR MAKE ANY OTHER PURPOSEFUL MOVEMENTS. PT WILL OPEN EYES SPONTANIOUSLY BUT WILL NOT TRACK WITH EYES. PT CONTINUES TO RECEIVE JEVITY TUBE FEED AT GOAL RATE OF 45ML/HR. PT HAS HAD MINIMAL RESIDUALS THROUGHOUT THE NIGHT. PT CONTINUES TO HAVE DORMAN TEMP PROBE IN PLACE, CURRENTLY PATENT AND DRAINING CLEAR YELLOW URINE. PT HAS HAD A LOW GRADE TEMP THROUGH THE NIGHT BETWEEN 99.4 TO 99.7. PT CONTINUES TO BE SALINE LOCKED AT THIS TIME. VITALS HAVE REMAINED STABLE THROUGH THE NIGHT. WILL REPORT [facility].
--- NOTE | 2018-11-29 10:44 | NUR ---
DR TIRSO CHAHAL ROUNDED, UPDATED ON PT STATUS AND PLAN. NO CHANGE TO PLAN OF CARE AT THIS TIME. WILL CONT TO MONITOR PT.
--- NOTE | 2018-11-29 16:51 | NUR ---
SHIFT SUMMARY PT REMAINS INTUBATED, NO SEDATION. PT RESPONSIVE TO PAINFUL STIMULI, DOES NOT FOLLOW COMMANDS. GROSS MOVEMENT NOTED IN ALL EXTREMITIES, NONPURPOSEFUL. LEFT ARM MORE SWOLLEN THAN RIGHT ARM, PT'S SON REPORTS THIS IS BASELINE. PT AT TIMES NOTED TO BRING UPPER BODY OFF BED. LS COARSE, DIMINISHED IN BASES. VENT SETTINGS: PS 7, FIO2 25%. PT WITH OCCASIONAL COUGH, ETT SUCTIONING PRODUCES SCANT AMOUNTS THIN CLEAR SECRETIONS. VSS, SEE FLOWSHEET. CONTINUOUS CARDIAC MONITORING SHOWING NORMAL SINUS WITH HR IN 70-90S. PT WITH LOW GRADE TEMP THIS MORNING, TRENDING DOWN THROUGHOUT SHIFT. BEDBATH GIVEN. DORMAN CATHETER REMAINS PATENT, DRAINING TO GRAVITY. RECTAL TUBE REMAINS PATENT, DRAINING LIQUID BROWN STOOL. ABD MODERATELY DISTENDED, FIRM, NO GRIMACING NOTED WITH PALPATION. VITAL HIGH PROTEIN TF RUNNING AT GOAL RATE, 45ML/HR, WITH 100ML WATER FLUSH Q4H PER DIETITIAN ORDER. RESIDUAL CHECKED Q4H, 0ML. PT WITH MUCH GAS, RECTAL TUBE COLLECTION BAG BURPED THROUGHOUT SHIFT. PICC LINE TO BENEDICTO, FLUSHES EASILY, NS TKO. BED IN LOWEST POSITION, SIDE RAILS RAISED. CALL LIGHT IN REACH. TV ON TO FOOTBALL. PT'S SON IN TO SIT WITH PT FOR FEW HOURS, REPORTED PLAN REMAINS TO TRANSITION PT TO COMFORT CARE SUNDAY. WILL CONT TO MONITOR PT.
--- NOTE | 2018-11-29 21:54 | NUR ---
PT INTUBATED NO SEDATION. PT WILL RANDOMLY OPEN EYE'S. DOES NOT RESPOND TO STERNAL RUB OR NAILBED PRESSURE. HAS GROSS MOTOR MOVEMENTS OF ARMS AND LEGS. WILL CROSS LEGS AT TIMES. SEE ASSESSMENT. FAMILY AT BEDSIDE.
[2018-11-30 04:30] LABS: PCO2 Arterial 32.6 mmHg (35-45); PO2 Arterial 70.5 mmHg (80-100); pH Blood Arterial 7.45 (7.35-7.45)
[2018-11-30 04:35] LABS: Hematocrit 31.1 % (33.0-51.0); Hemoglobin 9.9 g/dL (11.5-16.0); Mean Corpuscular HGB 29.5 pg (26.0-34.0); Mean Corpuscular HGB Conc 31.8 g/dL (31.5-36.5); Mean Corpuscular Volume 93 fL (80-100); Mean Platelet Volume 11.4 fL (9.1-12.4); Platelet Count 260 K/mm3 (150-400); RDW Coefficient Variation 14.3 % (11.7-14.2); RDW Standard Deviation 48.5 fL (35.1-46.3); Red Blood Cell Count 3.36 M/mm3 (3.80-5.20); White Blood Cell Count 19.83 K/mm3 (4.00-11.30)
[2018-11-30 04:52] LABS: Albumin, Blood 2.7 g/dL (3.4-5.0); Anion Gap 8 mmol/L (6-16); Blood Urea Nitrogen 26 mg/dL (8-24); Bun/Creatinine Ratio 44.1 (12.0-20.0); CO2, Blood 23 mmol/L (21-32); Calcium, Blood 8.4 mg/dL (8.5-10.1); Chloride, Blood 105 mmol/L (98-108); Creatinine, Blood 0.59 mg/dL (0.40-1.00); Glomerular Filtration Rate >60 (60-); Glucose, Blood 160 mg/dL (70-99); Magnesium, Blood 1.7 mg/dL (1.6-2.4); Phosphorus, Blood 2.8 mg/dL (2.5-4.9); Potassium, Blood 3.6 mmol/L (3.5-5.5); Sodium, Blood 136 mmol/L (136-145)
--- NOTE | 2018-11-30 06:37 | NUR ---
PT HAS HAD NO CHANGES DURING THIS SHIFT.
--- NOTE | 2018-11-30 07:30 | NUR ---
PT MINIMALLY RESPONSIVE ON MECH VENT, SPONT W PS 7, FIO2 AT 25%. PT OPENS EYES RANDOMLY; APPEARS TO BE W/O PURPOSE. PT WITHDRAWALS FEET TO PLANTAR REFLEX. UNABLE TO ASSESS DOLLS EYES, PT SQUEEZES EYES SHUT WITH ANY FACIAL STIMULATION. PT HAS GAG, SWALLOW, COUGH, AND BREATHS OVER VENT. EXCESSIVE AIR TO GI TRACK. OG BURPED, AIR PASSING THROUGH RECTAL TUBE WELL. PICTURES TAKEN OF RIGHT HAND BLISTER; PT ADMITTED W THIS; AREA DRY BUT HEALING. AREA RE-DRESSED. PT MOVES LEGS AND ARMS SPONTANE./GROSS MOVEMENT ONLY. BOTTOM AND BACK ASSESSED; SKIN DRY AND INTACT.
--- NOTE | 2018-11-30 11:57 | NUR ---
DR ANNE SPEAKING WITH FAMILY AT BEDSIDE.
--- NOTE | 2018-11-30 18:40 | NUR ---
PT DID RESPOND TO SOME PAIN TODAY BY WITHDRAWING FROM PAIN SOURCE. EYES OPEN INTERMITTENTLY AND NOT TO INSTRUCTION. PT RANDOMLY MOVES EXTREMETIES, YAWNS, CHEWS ON ETT, AND OPENS EYES.
--- NOTE | 2018-11-30 19:59 | NUR ---
PT INTUBATED NO SEDATION. PT OPENS EYE'S RANDOMLY. DOES NOT RESPOND TO PAINFUL STIMULUS. CLENCHES JAW SHUT WITH MOUTH CARE AND WILL CLENCH EYE'S WHEN TRYING TO ASSESS PUPILS. GROSS MOTOR MOVEMENT OF EXTREMITIES BUT NO PURPOSFUL MOVEMENTS. DOES NOT WITHDRAWL WITH NAILBED PRESSURE. SEE ASSESSMENT.
--- NOTE | 2018-12-01 06:35 | NUR ---
NO CHANGES THIS SHIFT.
--- NOTE | 2018-12-01 07:56 | NUR ---
PT MINIMALLY RESPONSIVE ON MECH VENT FOR AIRWAY PROTECTION. NO CHANGE IN NEURO STATUS FROM LAST NIGHTS OR YESTERDAYS ASSESSMENT. PT CONT TO MOVE ALL EXT/GROSS MOVEMENT ONLY. OPENS EYES INTERMIT; DOES NOT TRACK, WITHDRAWALS FROM PAIN AT TIMES. HAS COUGH, GAG, SWALLOW.
--- NOTE | 2018-12-01 08:49 | NUR ---
DR ANNE IN TO SEE PT.
--- NOTE | 2018-12-01 15:44 | NUR ---
PT'S SISTER AND PT'S SON AT BEDSIDE TO WATCH SUPERBOWL WITH PT, SPORTS WERE ONE OF HER MOST FAVORITE THINGS.
--- NOTE | 2018-12-02 01:22 | NUR ---
PT INTUBATED NO SEDATION. AT TIMES PT WILL OPEN EYE'S ON COMMAND BUT NOT CONSISTENT. NOT FOLLOWING ANY OTHER COMMANDS AND DOES NOT WITHDRAWL FROM PAINFUL STIMULUS. GROSS MOVEMENT OF EXTREMITIES BUT NOTHING PURPOSEFUL.
--- NOTE | 2018-12-02 06:31 | NUR ---
SUMMARY PT INTUBATED NO SEDATION. PT WILL SOMETIMES OPEN EYE'S TO VOICE BUT DOESN'T ALWAYS FOLLOW THAT COMMAND. NOT FOLLOWING ANY OTHER COMMANDS. NO CHANGES THIS SHIFT.
--- NOTE | 2018-12-02 10:10 | NUR ---
AM ASSESSMENT REVEALED INCONSISTANT NEUROLOGICAL SIGNS. NO UPPER EXT RESP. TO NOXIOUS STIMULI, BUT WOULD CLOSELY CLOSE EYES TO PEN LIGHT WHILE EYES WERE ALREADY CLOSED. FEET AND TOES ARE UP GOING WITH SOLE OF FOOT STIMULATION AND NOXIOUS TOE STIMULATION. NOTHING NOTED TO COMMANDE. SPONTANIOUS COUGH, GAG, AND EXREMETY MOVEMENT RANDOMLY. PT IS NOT RESTRAINED. NO FAMILY HAS BEEN IN THIS AM OR CALLED.
--- NOTE | 2018-12-02 15:10 | NUR ---
PT CHANGED TO COMFORT CARE AND WILL EXTUBATE PER FAMILY (SONS) REQUEST. PT EXTUBATED IN USUAL MANNER AND TITRATED DOWN TO 1L O2. PT TOLERATED WELL W/O DISTRESS. NO CHANGES IN NEURO STATUS, NO VERBALIZATION OR FOLLOWING OF FAMILY REQUESTS. VS REMAIN UNCHANGED WELL. OG WAS ALSO REMOVED AND PT IS NPO FOR NOW. PT HAS STRONG COUGH AND SEEMS TO BE AWARE SECREATIONS. EXTUBATION TIME WAS 14:44.
--- NOTE | 2018-12-02 17:00 | NUR ---
1645 APPROX. CALL PLACED TO DMITRI TAO AND PT TO TRANSFER TO ROOM 338 VIA BED. VS AND STATS NOTED. FAMILY HAS BEEN WITH PT IN ROOM SENCE EXTUBATION AND WILL ACCOMPANY TO NEW ROOM. MEDS AND CHART SENT. I/O UP TO DATE.
--- NOTE | 2018-12-02 18:10 | NUR ---
PATIENT ARRIVES TO FLOOR ABOUT 1700. MOVES TOES SOMETIMES WHEN TOUCHED. HAS BLANK STARE. AT ABOUT 1740 PATIENT HAS RESPONDED TO SIMPLE QUESTION PER FAMILY. MOVES HEAD OFTEN, BUT DOES NOT FOCUS. WHEN RN GOES IN AND TAPS PATIENT ON CHEST AND SAYS "LOOK AT ME" PATIENT DOES. DOES NOT ANSWER ANY YES OR NO QUESTIONS FOR THIS RN. DOES NOT APPEAR TO BE IN PAIN. WILL CONTINUE TO MONITOR.
--- NOTE | 2018-12-02 18:19 | NUR ---
Met with tearful family and friends who gathered around bedisde. Pt's son, not present at time of visit. I Provided calm presence and prayer to good effect. Advised I would remain available.
--- NOTE | 2018-12-02 18:42 | NUR ---
PER SON,KRISTIAN, HE FEELS LIKE PATIENT HAS MADE A SIGNIFICANT CHANGE AND WANTS EVERYTHING RESTARTED. PER ISTRATE OK TO RESTART MEDS. PER EMAR PATIENT HAS NOT BEEN ON IV FLUIDS, BUT HAS BEEN GETTING NUTRITION THRU DOBHOFF. PAIN MEDS ARE IN [facility]. THIS RN DID NOT ORDER P.O. MEDS NO WAY TO GIVE. TALKED TO KRISTIAN AND HE IS OK WITH IV FLUID BEING STARTED TOMORROW.
--- NOTE | 2018-12-03 04:29 | NUR ---
SHIFT SUMMARY THE PATIENT IS ON COMFORT CARE. THE PATIENT'S SON WAS PRESENT AT THE START OF SHIFT AND STATED THAT WE WOULD CONTINUE ON FOR THE NIGHT. WILL CONTINUE TO MONITOR.
--- NOTE | 2018-12-03 10:09 | NUR ---
DISCUSS CODE STATIS W/KRISTIAN,SON WHO WANTS PATIENT TO REMAIN COMFORT CARE UNLESS PATIENT IS ABLE TO VERBALIZE SHE WANTS SOMETHING ELSE. PATIENT MOVES HEAD OFTEN AND HAS BLANK STARE. DOES NOT FOLLOW COMMANDS OR RESPOND TO QUESTIONS BY NURSE OR RELATIVES.
--- NOTE | 2018-12-03 12:35 | NUR ---
Met with Mariaa's family in her room this morning. Mariaa remains on comfort care at this time. Family has questions about when medications were given. Reviewed EMAR with family and explained that likely most of the medications are out of Mariaa's system. She appears to be very resting comfortably and isn't showing any signs of distress at this time. Pt's family would like to speak with Dr. Estrella. Spoke with Dr. Estrella and he plans to come and visit with family this afternoon. Family states that they are continuing to pray that Mariaa get better, however they are starting to verbalize that she may not get better. They acknowledge that this current quality of life would not be acceptable to her as she was a very active person. Emotional support given. Mariaa's sister brought in her dog to visit this am and she states that she felt Mariaa did not show any response to her dog which is unusual for her. PC will continue to support pt and family for symptom management and continued care planning.
--- NOTE | 2018-12-03 16:39 | NUR ---
PATIENT ON COMFORT CARE. NOT GIVEN ANY PAIN OR ANXIETY MEDS. APPEARS COMFORTABLE ALL SHIFT. MULTIPLE FAMILY MEMBERS IN AND OUT. INFREQUENTLY PATIENT WILL OPEN EYES AND STARE AND MOVE HEAD FROM SIDE TO SIDE. DOES NOT TRACK. DOES NOT WAKE UP WHEN TURNED. WILL CONTINUE TO MONITOR.
--- NOTE | 2018-12-03 16:50 | NUR ---
Oscar, pt's son, and two other family at bedside. Mariaa appears non-responsive and well cared-for. Oscar reports understanding of his mom's decline and peace with transition. Family members were guarded and said nothing to me. I will remain available.
--- NOTE | 2018-12-04 01:06 | NUR ---
SCOPOLAMINE PATCH APPLIED BEHIND L EAR FOR SECRETIONS AND COMFORT. PT BEING REPOSITIONED Q2H. DOES NOT APPEAR TO BE IN PAIN OR ANXIOUS. PT CONT TO BE NONRESPONSIVE, OCCASIONALLY FLUTTERING EYES. WILL CONT TO MONITOR.
--- NOTE | 2018-12-04 07:26 | NUR ---
SHIFT SUMMARY: PT IS RECIEVING COMFORT CARE. Q2H TURNS. PT CONT TO BE NONRESPONSIVE, COMA-LIKE STATE. FLUTTERS EYES c MOVEMENT, DOES NOT REPSOND TO VERBAL STIMULI. DORMAN CATH IN PLACE; DARK YELLOW OUTPUT. RECTAL TUBE IN PLACE; VERY LITTLE LIQUID BROWN OUTPUT. PT DOED NOT APPEAR TO BE IN PAIN OR ANXIOUS AT ALL. WILL CONT TO MONITOR AND PROVIDE CARE UNTIL PRESUMED BY ONCOMING RN.
--- NOTE | 2018-12-04 17:10 | NUR ---
SHIFT SUMMARY- PT RESTING WITH EYES CLOSED PEACEFULLY MOST OF SHIFT. PT OCCASIONALLY OPENS EYES BUT DOES NOT FOLLOW WITH HER EYES. PT NONVERBAL. BEDBOUND. TURNS Q2H. PT'S SON, NIECE AND FRIEND IN TO VISIT TODAY. NOTIFIED DR. CHAHAL PT'S SON REQUESTS TO SPEAK WITH HIM. PT STARTED ON LR AT 125ML/HR. PT SHOWS NO S/S OF PAIN OR DISCOMFORT. RESP E/U ON 1L 02 NC. DORMAN AND RECTAL TUBE PATENT AND DRAINING. NO OTHER SIGNIFICANT CHANGES THIS SHIFT.
--- NOTE | 2018-12-04 17:26 | NUR ---
Multiple visits. family at bedside requested a comfort care book to give to extended family to help them understand. Theraputic time with family. quilt placed and lavender given. pt like sports so tv remote placed by her ear. Son came in later he needs his FMLA signed. He has decided to trial fluids at family request. Very gentle conversation with son he is howing great fatige. He has never experinced . He is distraught that she opens her eyes. KEpt conversation to a minimum. He feels fluids will not help but want to honor family. reviewed startegies of conversation with his mother to help her in her process. And reviewed time line of patients and how they are unique. Reviewed with nursing s/s of poor tolerance of fluid. Advised if s/s of drooling or distress to get DC order and notify son. Will speak with family tomorrow and help son with process. Will work with chaplian on theraputic interaction with pt to help her.
--- NOTE | 2018-12-05 04:54 | NUR ---
SHIFT SUMMARY PT ADMITTED FOR RESPIRATORY FAILURE. DNR-COMFORT. CATHETER, CATH CARE Q SHIFT AND PRN. PT HAS RECTAL TUBE, CARE Q SHIFT AND PRN. 1L O2. PICC LINE R UPPER ARM. PT PRESENTED TO THE ED AFTER BEING FOUND DOWN BY FAMILY. EMS CALLED AND ARRIVED TO FIND THE PT WITH A TEMPERATURE OF 100.2, EMESIS ALL OVER HER AND SMELLED OF URINE. THE ELIAS COMA SCALE WAS A 9 AND DOWN TO A 6 UPON ARRIVAL TO THE ED. THE PT WAS GIVEN CARCAN WITH NO IMPROVEMENT. THE PT WAS INTUBATED UPON ARRIVAL IN THE ED AND WAS QUESTIONABLE FOR ST ELEVATION. 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 THE PT WAS NOTED TO BE OPEN HER EYES AND HAVE SPONTANEUOUS MOVEMENTS BUT REMAINS IN A COMATOSE STATE. THE PT APPEARED TO BE COMFORTABLY WITH NO APPARENT CHANGE IN CONDITION FROM THAT NOTED IN PRIOR DOCUMENTATION. COMFORT CARE ROUNDING.
--- NOTE | 2018-12-05 09:09 | NUR ---
SHE OPENED HER EYES WHEN I GREETED HER AND LOOKED AT ME FOR 1 SECOND, THEN EYES OPEN FOR 2 MORE SECONDS THEN CLOSED. NO SPEECH. DORMAN CATHETER AND RECTAL TUBE IN PLACE. IVF'S INFUSING AT 125MLS/HR. BENEDICTO PICC DRESSING INTACT. I CHANGED THE FOAM DRESSING ON HER MEDIAL BENEDICTO NEAR AXILLA. PHOTO TAKEN BUT ACCIDENTALLY DELETED AFTER NEW FOAM DRESSING PLACED. BOTTOM IS FLOATED. NYSTATIN POWDER PUT IN SKIN FOLDS WHERE NECESSARY. YEAST RASH AREAS MINIMAL.SHE APPEARS COMFORTABLE.
--- NOTE | 2018-12-05 10:45 | NUR ---
1000 NOTE HER SON IS PRESENT AT THE BEDSIDE. DMITRI HAS HER EYES OPEN LONGER. SHE DOES NOT SHOW ANY SIGNS OF COMPREHENSION. HE STATED THAT A LOT OF PEOPLE WANT EXTRA TIME SO SHE HAS IVF'S INFUSING FOR A FEW DAYS. SHE APPEARS COMFORTABLE. TURNED ONTO HER L SIDE. GAS SMELL IN ROOM. NO LEAK AROUND RECTAL TUBE. DEODERIZER USED.
--- NOTE | 2018-12-05 12:22 | NUR ---
SHE IS RESTING COMFORTABLY. FAMILY HAS GONE FOR NOW. ISTRATE ROUNDED. EEG ORDERED BECAUSE HER LOC HAS CHANGED FROM PREVIOUS DAYS.
--- NOTE | 2018-12-05 15:23 | NUR ---
Pt is awake and looking around the room with a wide-eyed stare. Family at bedside state that the doctor has ordered additional testing in the spirit of trying to give the pt another chance at recovery. Reviewed with daughter at bedside. She holds hope that mom will live. Reviewed with nurse, Tami. No other concerns at this time. Will remain available.
--- NOTE | 2018-12-05 16:04 | NUR ---
1415 NOTE NO CHANGES. NO EEG YET TODAY.
--- NOTE | 2018-12-05 16:04 | NUR ---
FAMILY BACK. NO CHANGES. SHE OPENS HER EYES WHENEVER SHE HEARS A NEW VOICE.
--- NOTE | 2018-12-05 18:29 | NUR ---
SHE IS SLEEPING PEACEFULLY. RESPIRATIONS ARE REGULAR ABOUT 15/MIN. FAMILY HAS COME AND GONE AGAIN. AN EEG WAS ORDERED TODAY BUT NOT DONE YET. IVF'S CONTINUE AT 125MLS/HR. SHE REMAINS NPO. SHE CAN OPEN HER EYES BUT NO SPEECH TODAY.
--- NOTE | 2018-12-05 18:39 | NUR ---
CLEARED IV PUMP FOR 1615 MLS IV FLUID TODAY.
--- NOTE | 2018-12-05 20:54 | NUR ---
picc dressing not changed at this due to patient comfort.
--- NOTE | 2018-12-06 04:02 | NUR ---
SHIFT SUMMARY: PT IS RESPONSIVE TO VERBAL AND PAINFUL STIMULI, EYES OPEN ON SEVERAL OCCASIONS, NO VERBAL RESPONSE. PT TURNED Q2H ORDERED. DORMAN AND RECTAL TUBE INTACT AND DRAINING. PT SLEPT MUCH OF THE NIGHT. FLUIDS RUNNING ORDERED. NO PRN MEDICATIONS GIVEN. PT SHOWS NO S/S FOR PAIN, NAUSEA, VOMITING, OR SOB. NO ACUTE CHANGES OVERNIGHT. WILL REPORT TO DAY NURSE.
--- NOTE | 2018-12-06 07:15 | NUR ---
LATE LISSY 1852 EEG IN PROGRESS IN ROOM
--- NOTE | 2018-12-06 09:15 | NUR ---
COMFORT CARE PT RESTING IN BED. RESPONDS TO PAINFUL/TACTILE STIMULI. OPENS EYES BUT DOES NOT APPEAR TO FOCUS ON ANYTHING. BREATHIGN EVEN AND UNLABORED, LS CLEAR, DIM IN BASES. PT HEART SOUNDS REGULAR. BS PRESENT X4 QUAD, HYPOACTIVE. BED BATH COMPLETED. MEPILEX IN PLACE LEFT UPPER, INNER ARM. NYSTATIN PLACED IN FOLDS. DORMAN PATENT AND DRAINING, RECTAL TUBE IN PLACE AND READJUSTED. PT APPEARS TO BE COMFORTABLE. WILL CONTINUE TO MONITOR.
--- NOTE | 2018-12-06 11:32 | NUR ---
COMFORT CARE FAMILY AT BEDSIDE. PT APPEARS TO BE RESTING COMFORTABLY. EYE OPENING SPONTANEOUSLY AND TO VERBAL STIMULI. ORAL CARE COMPLETED WITH SUCTIONING SET. PT REPOSTIONED FOR COMFORT. RESP EVEN AND UNLABORED. WILL CONTINUE TO MONITOR.
--- NOTE | 2018-12-06 13:35 | NUR ---
COMFORT CARE SON AT BEDSIDE, SON STATES THAT THE PT LOOKED DIRECTLY AT HIM AND SAID HI. WHEN THIS RN AT BEDSIDE, PT EYES OPEN SPOTANEOUSLY, MOANS AT TIMES. PT RESTING, APPEARS TO BE COMFORTABE. NO S/SX PAIN OR ANXIETY. ORAL CARE COMPLETED. PT FLOATED. WILL CONTINUE TO MONITOR.
--- NOTE | 2018-12-06 14:12 | NUR ---
son at [facility]. He is pressured to go home to help with family and is deatling with his aunt and mothers friends contributing to his stres. He keeps repeating she is not brain but I have to honor her feelings. He states she opened her eys. Careful gentle conversation on neurologic chnages. Advised son that I choose my words carefully and speak to the patient carefully. Advised son that it is a progression of brain injury. He affirmed the neurologist gave him the sme information. We reviewed shat brain is and brain injury. He is still struggling but gives some statements of acceptance. He left for home and assessment done on patient. pt turns away from touch. holding jaw tight and clenching. right arm stiff and difficult to move no grimace or response. right arm can pull up pt attemtps to move but unable. no grimace or pain to head to toe palaption. respirations slightly labored. Review of history of patient with nurse and sons needs. review of prn meds. asked nursing to call is sister comes in again. pt may need hospice placement.
--- NOTE | 2018-12-06 18:45 | NUR ---
SHIFT SUMMARY SPONTASOUSLY OPENS EYES TO LIGHT, SOUNDS AND TACTILE STIMULI. PT MOANS AT TIMES. PT CURRENTLY RESTING IN BED, NO S/SX OF PAIN. BREATHING EVEN AND UNLABORED. DORMAN CATHETER AND RECTAL TUBE IN PLACE. Q2 TURN PER ORDERS. SUCTION SET UP AT BEDSIDE TO COMPLETED ORAL CARE. WILL CONTINUE TO MONITOR UNTIL REPORT GIVEN TO ONCOMING RN.
--- NOTE | 2018-12-07 02:49 | NUR ---
SON FINESSE AT BEDSIDE DISCUSSING HIS HOPE MOTHER MAY WAKE UP MORE DESPITE ANOXIC BRAIN INJURY. SHE DID SAY HI TO SON IN AM AND APPERS TO RECOGNISE HIM. FOLLWS WITH EYES SOME PURPOSEFUL MOVEMENT & CLENCHES LIPS WITH ORAL CARE. AMBIEN 10 MG PO GIVEN PER SONS REQUEST FOR ATTEMPT TO IMPROVE LOC. NO S/SX PAIN, DOES NOT FOLLOW COMMANDS, OXYGEN 1 L NC, DORMAN AND RECTAL TUBE PRESENT AND DRAINING. CONTINUES ON COMFORT MEASURES.
--- NOTE | 2018-12-07 06:04 | NUR ---
pt continues on iv fluid and since she is on comfort measures i & o note indicated. pt also has painting cath and large amt of urine drainede. Called DR HACKETT about need for transfer order as none noted in chart. he asked to have day RN address need for transfer order as she was transferred from ICU on 12/02/18 at 1651. will put nurse notify order to adress. pt rouses intermittantly with inconsistant response. no verbalizations.
--- NOTE | 2018-12-07 11:14 | NUR ---
Pt resting in bed and is minimally responsive. Offered gentle voice and theraputic touch by massaging arm. Pt slowly lifts her head but does not open her eyes and is not verbal. She appears comfortable with a FLACC score of 0/10. Spoke with Pt's nurse Bettina and discussed placement with hospice, discussion was made with Dr Rodriguez and both are in agreement. Bettina will place hospice social service consult. Will remain available.
--- NOTE | 2018-12-07 18:14 | NUR ---
SHIFT SUMMARY PATIENT NO LONGER ON IV FLUIDS AND HAS NO PO MEDS. WILL CONTINUE TO MONITOR FOR CHANGES AND SIGNS OF DECLINATION.
--- NOTE | 2018-12-07 20:35 | NUR ---
HARSHIL FRIEND FOR 35 YEARS AT BEDSIDE. SUPPORTIVE. PT WITH INTERMITTANT EYE OPENING
--- NOTE | 2018-12-08 06:39 | NUR ---
PT WITH OCC EYE OPENING NO PURPOSEFUL MOVEMENT NOT TRACKING. NO SPEECH BUT DID ATTEMPT TO VOCALIZE X 1 . LONG TIME FRIEND SPENT NIGHT AT BEDSIDE. NO S/SX PAIN
--- NOTE | 2018-12-08 10:36 | NUR ---
Pt visit this AM. Pt's son Oscar and family friend present during visit. Pt is resting in bed and appears comfortable with a FLACC score of 0/10. Pt opens her eyes and moves her head and arm breifly towards the end of the visit. Pt does not respond verbally when speaking with her. Engaged in therapeutic conversation about hospice and Oscar is agreeable with this plan. He reports that she would not be able to come home with him and will need placement. Instructed Oscar that social media marketing manager will contact him and discuss options. Spoke with Pt's nurse Bettina and she reports no concerns at this time. Will remain available.
--- NOTE | 2018-12-08 17:31 | NUR ---
SHIFT SUMMARY PATIENT STILL HAS NO CHANGES. SHE AHS BEEN TURNED Q2. BEST FRIEND HAS BEEN IN THE ROOM ALL DAY.
--- NOTE | 2018-12-08 17:33 | NUR ---
ORAL CARE HAS BEEN DONE TODAY. PATIENT ALSO HAD A BED BATH TODAY. WILL CONTINUE TO MONITOR FOR ANY CHANGES. PATIENTS FRIEND HAS BEEN IN WITH THE PATIENT ALL DAY. PATIENTS SON DID STOP IN TODAY AND SIT WITH HER FOR A WHILE. NO CHANGE IN BOWEL MOVEMENTS, DORMAN STILL PATENT AND DRAINING.
--- NOTE | 2018-12-08 20:19 | NUR ---
PT MORE ALERT EYES OPEN, SOME PURPOSEFUL MOVEMENT WITH EYE BLINKS NODS OR HEAD SHAKE MINIMAL SQUEEZE ON COMMAND. EYE CARE ORAL CARE AND SHAMPOO CAP FOR HAIR. LOTION FEET AND DISCUSSION WITH sON Jeanette ABOUT HIS HOPES HIS mOM'S BRAIN FUNCTION WOULD RETURN. YESTERDAY WAS LETHARGIC AND EYES MOSTLY CLOSED. NO S/SX OF PAIN.
--- NOTE | 2018-12-09 00:23 | NUR ---
SON AND FRIEND AT BEDSIDE. PT APPEARS TO HAVE SOME EYE CONTACT WITH SOME ALERT BEHAVIOR. CONTINUES WITHOUT S/SX PAIN
--- NOTE | 2018-12-09 06:39 | NUR ---
NO S/ SX PAIN TURNING Q 2, FRIEND AT BEDSIDE SUPPORTIVE
--- NOTE | 2018-12-09 09:16 | NUR ---
NO ACTIVE BM 2-3 DAYS. NPO FOR 2-3 WEEKS PER GLO TAO. CARLOS GARCIA. OKAY D.C RECTAL TUBE
--- NOTE | 2018-12-09 10:01 | NUR ---
DC'D RECTAL TUBE. PRESENTS WNL. NO BLEEDING, VISABLE TEARS. 15 CC FLUID IN TUBE EXPANSION. PT NOW IN ATTENDS.
--- NOTE | 2018-12-09 11:27 | NUR ---
Pt visit this AM. Son Oscar present during visit. Oscar reports when he addresses Pt she responds with no and I don't know answers. Educated Oscar about whether these are truly purposeful responses. Spoke with Pt's nurse and he reports no concerns at this time. Nurse reports symptoms are currently managed. Will remain available.
--- NOTE | 2018-12-09 11:46 | NUR ---
PICC RN STATES OKAY USE PICC LINE EVEN THOUGH OUT 12 CC. NOT FUR INFUSING.
--- NOTE | 2018-12-09 17:22 | NUR ---
PT FAMILY IN ROOM MOST OF NITE. SHE DID SPEAK FEW TIMES. MOSTLY NO, NOT WANT. TALKED TO FAMILY ABOUT POSSIBILITY OF FLUCTUATION IN LOC. OFTEN UP BEFORE GOES DOWN. THEY REMAIN HOPEFUL. SPOKE TO DR GARCIA. NO NEW ORDERS. BED IN LOW POSITION, CALL LITE IN REACH. BED ALARM ON FOR SAFETY
--- NOTE | 2018-12-09 20:54 | NUR ---
PT RESTING IN BED, FAMILY MEMBER AT BEDSIDE. PT EYES OPEN, TRACKING. NOT ABLE TO FOLLOW COMMANDS OR CARRY CONVERSATION. PT ANSWERS "NO" WHEN ASKED ABOUT PAIN. DORMAN CATH IN PLACE.
--- NOTE | 2018-12-10 06:19 | NUR ---
SHIFT SUMMARY: COMFORT MEASURES IN PLACE. PT MOSTLY NONVERBAL TONIGHT, SHOUTS OUT "NO!" 2X WHEN REPOSITIONING PT AND ATTEMPTING TO PROVIDE ORAL CARE. EYES FLUTTER OPEN AND ARE TRACKING. Q2H TURNS PERFORMED. NO SIGNS OF PAIN OR ANXIETY. DORMAN CATH PATENT AND DRAINING DARK YELLOW URINE. FAMILY AT BEDSIDE AT START OF SHIFT. WILL CONT TO MONITOR AND PROVIDE COMFORT MEASURES UNTIL PRESUMED BY ONCOMING RN.
--- NOTE | 2018-12-10 08:00 | NUR ---
PT NONVERBAL EXCEPT FOR "NO" ANSWERS TO ANY QUESTIONS TODAY. DOES TRACK WITH EYES. ANSWERS SOME OCCATIONAL, BUT NOT ALL. NO S/S ANXIETY OR PAIN. H/R REG, NO MURMER NOTED. NO EDEMA AT THIS TIME. LUNGS CLEAR. RESP EASY UNLABORED. ON R.A. TURNING Q2. NO FAMILY AT THIS TIME. BED IN LOW POSITOIN, CALL LITE IN REACH, BED ALARM ON FOR SAFETY
--- NOTE | 2018-12-10 13:29 | NUR ---
Pt visit this afternoon. Pt resting in bed and has her eyes opened. She is non verbal and appears comfortable. Spoke with Pt's nurse Behzad and he reports the Pt has her eyes opened more today but is less responsive. He reports symptoms are currently managed. Will remain available.
--- NOTE | 2018-12-10 18:48 | NUR ---
PT HAS EYES OPEN OFTEN TODAY. SOME FOLLOWING SOMETIMES NOT. SEVERAL FAMILY IN TODAY. SON STATES LESS IMPROVEMENT FROM YEST. H/R 70-80, RESP 16 THIS ROSEY. PULSES SOME WEAKER THAN YEST. LUNGS REMAIN CLEAR THIS AFT. SON AT BEDSIDE AT THIS TIME. BED IN LOW POSITION, CALL LITE IN REACH, BED ALARM ON FOR SAFETY
--- NOTE | 2018-12-11 06:23 | NUR ---
SHIFT SUMMARY PT IS A 63 Y/O FEMALE, ADMITTED FOR RESPIRATORY FAILURE AND CURRENTLY ON COMFORT CARE. SHE IN MOSTLY UNCOMMUNICATIVE, OCCASIONALLY RESPONDING "NO" TO ANY STIMULATION. BREATHING IS SLOW AND NONLABORED. SHE APPEARS COMFORTABLE, WITH NO S/S OF PAIN OR SOB. NO OTHER ACUTE CHANGES IN PT CONDITION NOTED. WILL CONTINUE TO MONITOR AND TREAT.
--- NOTE | 2018-12-11 13:56 | NUR ---
Pt visit this afernoon. Pt appears comfortable and has her eyes opened. FLACC score 0/10. Pt moves her head back and forth closing and opening her eyes with the head motion. No signs of improvment including no evidence of language comprehesion. No reponse to tactile touch. Will remain available.
--- NOTE | 2018-12-11 19:45 | NUR ---
SHIFT SUMMARY PT ON COMFORT CARE. NO ACUTE CHANGES THIS SHIFT. PT RESTING COMFORTABLY THIS SHIFT. PT SAYS "NO" WHEN TALKING AND SAID "HI" ON ONE INSTANCE. BED IN LOW POSITON, CALL LIGHT WITHIN REACH, BED ALARM ON. PT HAD BED BATH THIS SHIFT. PICC PATENT AND SALINE LOCKED, DRESSING CHANGED THIS SHIFT.
--- NOTE | 2018-12-12 06:23 | NUR ---
SHIFT SUMMARY: PT IS RECIEVING COMFORT MEASURES. NO SIGNS OF PAIN, ANXIETY. NO EXCESS SECRETIONS. Q2H TURNS PERFORMED. ORAL CARE DONE THIS AM BY AID. PT OPENS EYES TO SOUND, ONLY WORDS ARE "NO." PT IS NOT TRACKING, STARES BLANKLY. NO OTHER CHANGES, WILL CONT TO MONITOR AND PROVIDE CARE UNTIL PRESUMED BY ONCOMING RN.
--- NOTE | 2018-12-12 10:27 | NUR ---
late entry note did not post on 12/11. collaborative visit with DINH Hdez for pt assessment. pt opens eyes but frequent repetative head motion. pupil response slow. oral stimulus pt clams down and sucks on oral swab. no grimace to noxious stimulus. extensive oral care performed with bite block in place. minimal gag to oral suction and does not swallow or protect airway. head to toe palapation and physical to see if any painful areas no response.
--- NOTE | 2018-12-12 14:04 | NUR ---
Mariaa was sleeping and appeared comfortable in her room this afternoon. She is currently on comfort care. No family is present in her room at this time. Resp even and appear unlabored at this time.
--- NOTE | 2018-12-12 16:55 | NUR ---
SHIFT SUMMARY PT RESTING COMFORTABLY IN BED. FAMILY AT BEDSIDE MOST THE DAY. PT REPOSITIONED Q2H. CATH CARE COMPLETE. WILL CONTINUE TO MONITOR FOR PT COMFORT.
--- NOTE | 2018-12-13 04:24 | NUR ---
*SHIFT SUMMARY* PATIENT OPENS EYES TO VERBAL STIMULI. PATIENT IS ABLE TO MOVE ALL FOUR EXTREMITIES. PATIENT DID NOT SPEAK AT ALL DURING SHIFT. NO COMPLAINTS OF PAIN. NO MOANING OR WINCING WITH REPOSITIONING. PATIENT DOES NOT APPEAR TO BE IN PAIN. PATIENT DID NOT HAVE A BOWEL MOVEMENT DURING SHIFT. DORMAN IS DRAINING WELL. CALL LIGHT WITHIN REACH, BED LOWERED AND LOCKED WITH ALARM ON.
--- NOTE | 2018-12-13 08:39 | NUR ---
PATIENT REPOSITIONED ON HER RIGHT SIDE. ORAL CARE REFUSED BY PATIENT. PATIENT ANSWERED TWO QUESTION APPROPRIATELY. SAID HI WHEN I WOKE HER UP FOR NYSTATIN POWDER. MOVING MORE THIS MORNING THAN I HAVE SEEN HER. TRYING TO TRACK WITH HER EYES. WILL CONTINUE TO MONITOR FOR ANY CHANGES.
--- NOTE | 2018-12-13 10:00 | NUR ---
PATIENT TOLD FAMILY MEMBER THAT HE WAS HER SON. ANSWERED YES AND NO QUESTIONS. SHE HAS BEEN MOVED. WILL CONTINUE TO MONITOR FOR CHANGES.
--- NOTE | 2018-12-13 11:44 | NUR ---
PATIENT REPOSITIONED. SON REQUESTED CALL IF THERE IS A CHANGE IN CARE. HE STATES THAT SHE HAD A RALLY EARLIER THIS MORNING WHEN SHE TRIED TO CLIMB OUT OF BED. PATIENT BACK TO NOT DOING A LOT OF MOVING. EYES MOVING WITH BREATHING REFLEX.
--- NOTE | 2018-12-13 17:55 | NUR ---
SHIFT SUMMARY PATIENT HAD ONE PERIOD OF CLARITY IN WHICH SHE WAS ABLE TO APPROPRIATELY ANSWER YES AND NO QUESTIONS. PATIENTS SON ATTRIBUTED THE CLARITY TO A RALLY AND STATES SHE EXPRESSED TO HIM THAT SHE IS READY TO GO. SPOKE WITH THE PATIENT'S SISTER TODAY WHO HAS CONSTANTLY BEEN EXPRESSING THAT THE PATIENT NEEDS TO GET BETTER AND SHE HOPED THAT SHE WOULD GET TO COME HOME. PATIENTS FAMILY AND I SPOKE VERY EXSTENSIVELY TODAY ABOUT THE CIRCUMSTANCES AND WHAT THEY EXPECTED OUT OF COMFORT CARE FOR THIS PATIENT. THERE IS NO CONTINUED CHANGE AT THIS TIME. NO ACUTE CONCERNS AT THIS TIME. I WILL CONTINUE TO MONITOR FOR ANY CHANGES.
--- NOTE | 2018-12-14 04:26 | NUR ---
*SHIFT SUMMARY* PATIENT IS NOT ALERT. OPENS EYES AT TIMES TO VERBAL STIMULI, OTHER TIMES DOES NOT OPEN EYES OR RESPOND TO VERBAL STIMULI OR BEING REPOSITIONED. PATIENT DID NOT ANSWER ANY YES OR NO QUESTIONS FOR NIGHTSHIFT STAFF. PATIENT DID TURN HER HEAD AWAY, ROLL HER EYES, AND CLOSE HER MOUTH WHEN ORAL CARE WAS OFFERED. PATIENT SLEPT THROUGHOUT THE SHIFT. DORMAN IS PATENT AND DRAINING URINE. CALL LIGHT IS WITHIN REACH, BED LOWERED AND LOCKED WITH ALARM ON.
--- NOTE | 2018-12-14 17:01 | NUR ---
SHIFT SUMMARY PATIENT IS STILL HANGING ON. MILD URINE OUTPUT TODAY. FAMILY WAS IN TO SEE HER TODAY. NO ACUTE CHANGES AT THIS TIME.
--- NOTE | 2018-12-15 04:52 | NUR ---
*SHIFT SUMMARY* PATIENT OPENS HER EYES AT TIMES TO STAFF. AT BEGINING OF SHIFT PATIENT ANSWERED STAFFS QUESTIONS. PATIENT OPENS EYES AT STAFF WHEN ENTERING ROOM BUT HAS NOT CONTINUED TO ANSWER QUESTIONS. PICC LINE IN L UA IS PATENT. DORMAN CATHETER IS PATENT. PT REFUSES ORAL CARE. BED LOWERED AND LOCKED WITH ALARM ON AND CALL LIGHT IN REACH.
--- NOTE | 2018-12-15 08:44 | NUR ---
PATIENT HAS NO ACUTE CHANGES THIS MORNING. SHE HAS BEEN REPOSITIONED THIS MORNING AT 8. SHE IS CURRENTLY FLOATED AND WILL MONITOR FOR ANY CHANGES. NO FAMILY YET THIS MORNING.
--- NOTE | 2018-12-15 15:41 | NUR ---
PATIENT HAS HAD LOTS OF FRIENDS IN TO SEE HER TODAY. REPOSITIONED EVERY TWO HOURS. SHE DID NOT WANT A BED BATH OR ORAL CARE TODAY. WILL MONITOR FOR ANY MORE CHANGES.
--- NOTE | 2018-12-15 17:13 | NUR ---
PATIENT IS REPOSITIONED. SHE ASKED FOR FOOD. STEVEN TRIED TO FEED HER WITH FRIEND HARSHIL BY HER SIDE. HRASHIL THINKS THAT SHE DOESN'T UNDERSTAND WHAT SHE IS ASKING FOR OR SAYING. PATIENT NOT EATING AT THIS TIME.
--- NOTE | 2018-12-15 17:59 | NUR ---
SHIFT SUMMARY PATIENT STILL ON COMFORT CARE, SHE IS HAVING MANY PERIODS OF MOVEMENT AND TALKING BUT IS STILL NOT FOLLOWING DIRECTIONS APPROPRIATELY. SHE DOES ANSWER QUESTIONS WITH A YES OR A NO AND TRIES TO LOOK AT PEOPLE BY TURNING HER HEAD AND OPENING HER EYES. NO CHANGE IN COURSE PLAN WILL BE MADE THE SON HAS AGREED THAT SHE IS IN THE BEST POSITION CURRENTLY. PATIENT ASKED FOR FOOD TODAY, TRANSPORTATION SUPERVISOR TRIED TO FEED HER. PATIENT MOVED HER HEAD AWAY AND SHE ALSO DID NOT TRY TO INITIATE THE SWALLOW REFLEX. WILL MONITOR FOR ANY CHANGES. FAMILY AND FRIEND IN THE ROOM.
--- NOTE | 2018-12-16 05:11 | NUR ---
*SHIFT SUMMARY* FRIEND JUNIOR SLEPT AT BEDSIDE. PATIENT SEEMS TO BE TALKING LESS WITH STAFF AND FAMILY. MEDICATED PATIENT WITH ATROPINE DROPS FOR SECRETIONS. PATIENT ALSO APPEARED TO BE FLUSHED IN THE FACE AT THE BEGINING OF THE SHIFT AND WAS WARM TO TOUCH. STAFF OFFERED A COOL WASH CLOTH TO APPLY TO FOREHEAD. PATIENT NODDED YES TO THIS. RESPIRATIONS THIS AM ARE SLOW AND SHALLOW. EYES STILL OPEN WITH MOVEMENT.
--- NOTE | 2018-12-16 08:23 | NUR ---
DORMAN EMPTIED OF 250 DARK NERY URINE. REFUSES MOUTH CARE. WHEN ATTEMPTED PATIENT PUTS LIPS TIGHT TOGETHER. TONGUE LOOKS DRY. TURNED.
--- NOTE | 2018-12-16 09:16 | NUR ---
FURROWED BROW, WILL GIVE PAIN MEDS IV. PATIENT PUSHES LIPS TIGHT TOGETHER WHEN ATTEMPTING TO PUT ANYTHING IN MOUTH.
--- NOTE | 2018-12-16 09:53 | NUR ---
PATIENT APPEARS COMFORTABLE. HOT WATER AND HOT CHOCOLATE REPLACED ON COMFORT CART.
--- NOTE | 2018-12-16 10:25 | NUR ---
PATIENT APPEARS COMFORTABLE. COMFORT CART REFILLED.
--- NOTE | 2018-12-16 11:48 | NUR ---
Pt visit this AM. Pt appears comfortable with a FLACC sore of 0/10. Family at bedside. Pt attempts to speak but is difficult to understand what she said. Pt's condition appears the same. No signs of speech comprehension. Spoke with Pt's nurse Mariaa and she reports medicating Pt for pain earlier in the shift but symptoms are managed. Will remain available.
--- NOTE | 2018-12-16 14:39 | NUR ---
TURNED, MINOR SECRETIONS NOTED. SCOPOLOMINE GIVEN. APPEARS COMFORTABLE. WILL NOT ALLOW ORAL CARE. CATH CARE.
--- NOTE | 2018-12-16 18:33 | NUR ---
REPOSITIONED Q 2 HOURS. DOES NOT LET STAFF DO ANY ORAL CARE. RELATIVES/FRIENDS IN WITH PATIENT ALL SHIFT. MEDICATED ONCE FOR PAIN W/GOOD RESULTS. NO B.M. DARK URINE OUTPUT. WILL CONTINUE TO MONITOR.
--- NOTE | 2018-12-16 19:20 | NUR ---
PT OBSERVED TO BE RESTING QUIETLY IN BED WITH EYES CLOSED. FAMILY AT THE BEDSIDE. NO COMPLAINTS, WILL CONTINUE TO MONITOR.
--- NOTE | 2018-12-17 05:14 | NUR ---
VSS, AFEBRILE, ALERT AT TIMES, CONFUSED, FAMILY AT THE BEDSIDE. POWERGLIDE L US, TURN Q 2, SKIN IN FAIRLY GOOD SHAPE, DORMAN FOR COMFORT. PT REFUSING ORAL CARE AT TIMES, TURNS HEAD/CLAMPS DOWN ON MOUTH/TURNS AWAY FROM ANYTHING ORAL INCLUDING FLUIDS. PT CLEARLY DOES NOT WANT PO MEDS. FAMILY IS HELPFUL AT NOC. NO COMPLAINTS OF PAIN.
--- NOTE | 2018-12-17 07:36 | NUR ---
TURNED. ORAL CARE GIVEN. APPEARS COMFORTABLE.
--- NOTE | 2018-12-17 09:57 | NUR ---
Pt visit this AM. Pt resting in bed with her eyes opened and appears mostly comfortable. FLACC score of 1/10 due to raising of eye brows and wrinkles in the forehead. Family presenet during visit and request the Pt be medicated for pain. Family report no other concerns at this time. Spoke with Pt's nurse Mariaa and she reports that she will offer medication to manage pain and has no other concerns at this time. Will remain available.
--- NOTE | 2018-12-17 10:49 | NUR ---
MEDICATED FOR PAIN. LOOKS COMFORTABLE. BROW NOT FURROWED. RESTING. UNLABORED RESPIRATIONS.
--- NOTE | 2018-12-17 11:41 | NUR ---
PATIENT RESTING, LOOKS VERY COMFORTABLE. SON AT BEDSIDE.
--- NOTE | 2018-12-17 15:01 | NUR ---
MEDS GIVEN FOR AIR HUNGER AND PAIN.
[2018-12-17] MEDS ORDERED: METO50ER PO (15:18)
[2018-12-17] MEDS ORDERED: LISI20 PO (15:19)
[2018-12-17] MEDS ORDERED: HYDCHL50 PO (15:19)
[2018-12-17] MEDS ORDERED: PANT40 PO (15:20)
--- NOTE | 2018-12-17 16:02 | NUR ---
APPEARS COMFORTABLE. BROW SMOOTH.
--- NOTE | 2018-12-17 17:05 | NUR ---
TURNED T/O DAY. MEDICATED FOR PAIN AND AIR HUNGER WITH GOOD RESULTS. PATIENT HAS NOT MADE ANY SIGNS OF COMMUNICATION TODAY. RELATIVES IN AND OUT T/O SHIFT.FREQUENT ROUNDING. WILL CONTINUE TO MONITOR.
--- NOTE | 2018-12-17 22:29 | NUR ---
PT ANSWERES YES WHEN ASKED IF IN PAIN. UNABLE TO SAY WHERE. COMFORT CARE PT. TREATED WITH MORPHINE SEE EMAR
--- NOTE | 2018-12-18 00:42 | NUR ---
ORAL CARE PERFORMED. PT FELL BACK TO SLEEP SHORTLY AFTER.
--- NOTE | 2018-12-18 04:27 | NUR ---
NOC SHIFT SUMMARY PT HAS LAURA IN BED THIS NIGHT. MOSTLY NON VERBAL BUT WILL OCCASIONALLY SAY YES. HAVE MEDICATED FOR PAIN TWICE, SEE EMAR. PT CURRENTLY APPEARS TO BE COMFORTABLE AND IS SLEEPING. WILL CONTINUE TO MONITOR AND REPORT TO DAY NURSE.
--- NOTE | 2018-12-18 04:43 | NUR ---
PT ASLEEP, APPEARS COMFORTABLE.
--- NOTE | 2018-12-18 05:50 | NUR ---
PT TREATED FOR PAIN WITH MORPHINE 4MG IV PREVIOUSLY. APPEARS TO BE PAIN FREE AND COMFORTABLE NOW. FALLS INTO LIGHT SLEEP.
--- NOTE | 2018-12-18 08:55 | NUR ---
APPEARS COMFORTABLE. RELATIVE IN ROOM
--- NOTE | 2018-12-18 09:59 | NUR ---
Pt visit this AM. Pt opens her eyes when speaking with her but does not respond verbaly. Pt appears comfortable with a FLACC score of 0/10. Offered therapeutic touch and gently spoke to Pt. No concerns noted at this time. Will remain available.
--- NOTE | 2018-12-18 10:39 | NUR ---
PATIENT VERY SHALLOW BREATHING, NOT TURNED AT THIS TIME. APPEARS VERY COMFORTABLE.
--- NOTE | 2018-12-18 11:02 | NUR ---
VERY SHALLOW BREATHING. WAKES UP WHEN TOUCHED. APPEARS COMFORTABLE
--- NOTE | 2018-12-18 11:37 | NUR ---
SHALLOW BREATHING. DIFFICULT TO TELL SOMETIMES IF BREATHING TILL RN TOUCHES PATIENT THEN SHE MOVES. WILL CONTINUE TO MONITOR.
--- NOTE | 2018-12-18 11:55 | NUR ---
RESPIRATIONS 9-10/MINUTE. COMFORTABLE.
--- NOTE | 2018-12-18 18:06 | NUR ---
PATIENT RESPIRATIONS 9-12/MINUTE. SKIN VERY DRY. NONVERBAL. AT TIMES JUST STARES WITHOUT TRACKING. TURNED T/O DAY. LITTLE URINE OUTPUT. IV ASSESS PATENT. SON IN ROOM AT THIS TIME. WILL CONTINUE TO MONITOR.
--- NOTE | 2018-12-19 05:59 | NUR ---
SHIFT SUMMARY PT ON COMFORT CARE & RESTING COMFORTABLY T/O NIGHT, TURNED Q2H. WHEN PT'S NAME IS CALLED SHE OPENS EYES. PT IS MOSTLY NON-VERBAL, OCCASIONALLY SHE WILL SAY "YES" OR "NO." PT IS ABLE TO BLINK, MOVE BUE @ TIMES & SHE SCRATCHES HER NOSE OR FACE. PT HAS BEEN MEDICATED FOR PAIN 3X W/MORPHINE & 1X W/ROXANOL PER ORDERS, PT RAISES EYEBROWS WHEN IN PAIN & GETS RESTLESS. PT REFUSES ORAL CARE & CLAMPS MOUTH SHUT WHEN ATTEMPTING TO PERFORM ORAL CARE. PT HAS NOT HAD ANYTHING TO DRINK OR EAT. DORMAN WAS LEAKING EARLIER IN SHIFT, IT WAS IRRIGATED & IS NOW PATENT & DRAINING W/ONLY 200ML DARK NERY URINE OUTPUT THIS SHIFT. CALL LIGHT IS IN REACH & I WILL CONT TO MONITOR PT.
--- NOTE | 2018-12-19 08:07 | NUR ---
COMFORT CARE PT RESTING IN BED, REPOSITIONED FOR COMFORT. PT EYE OPENS SPONTANEOUSLY, LOOKS OFF TO UPPER LEFT OFTEN, WILL LOOK IN DIRECTIONS OF VERBAL STIMULI. ARMS ATTEMPT TO MOVE AND RUBS EYES. BLE NO MOVEMENT. NO S/SX OF PAIN NOTED AT THIS TIME. BREATHING EVEN AND UNLABORED AT RR12. PT LS DIM T/O. HEART SOUNDS REG. BSX4 QUAD HYPOACTIVE. DORMAN IN PLACE, PATENT AND DRAINING. EDEMA IN BLE, TRC. NONPITTING T/O. ORAL CARE COMPLETED. WILL CONTINUE TO MONITOR.
--- NOTE | 2018-12-19 09:48 | NUR ---
COMFORT CARE PT RESTING IN BED, REPOSITIONED FOR COMFORT. PT FURROWING BROW AND CLENCHING JAW, APPEARS RESTLESS, MEDICATED WITH MORPHINE IV 2MG FOR PAIN. SON AT BEDSIDE. WILL CONTINUE TO MONITOR
--- NOTE | 2018-12-19 11:51 | NUR ---
COMFORT CARE PT APPEARS TO BE RESTING, EYE CLOSED. OPENS TO VERBAL STIMULI. PT REPOSITIONED FOR COMFORT. BED BATH COMPLETED. ORAL CARE COMPLETED. WILL CONTINUE TO MONITOR
--- NOTE | 2018-12-19 16:04 | NUR ---
Pt visit this afternoon. Pt resting in bed with her eyes closed upon arrival. Gently spoke to Pt and offered therapeutic touch by rubbing her shoulder. Pt opens her eyes but does not respond verbally. Pt appears comfortable with no signs or symptoms of distress. Will remain available.
--- NOTE | 2018-12-19 18:13 | NUR ---
Mrs. Kent was alone in room and sleeping. She awakens to gentle touch. She opens eyes and stares, wide-eyed, at something unseen on ceiling. Then, she falls back to sleep. She did not respond otherwise. That said, she appears very comfortable and well cared-for by nursing. I provided prayer at bedside and will remain available to pt and family.
--- NOTE | 2018-12-19 18:43 | NUR ---
SHIFT SUMMARY PT ALERT, NONVERBAL FOR THE MOST PART, SAYS "YES" "NO" AND "HELLO" DURING SHIFT. PT EYE OPENS SPONTANEOUSLY, LOOK IN UPPER LEFT OFTER. PT LOOKS IN DIRECTION OF NOISE/VERBAL STIMULI. PT RESTING IN BED, REPOSITION Q2H FOR COMFORT. PT HAD BED BATH AND DRESSING CHANGE ON AXILIARY WOUND. MOVE UPPER EXTREMITIES, RUBS FACE. ORAL CARE COMPLETED T/O SHIFT. BREATHIGN REMAINS EVEN AND UNLABORED. DORMAN PATENT AND DRAINING. PAIN NOTED BY RESTLESSNESS AND FURROWING OF BROWS, ONE TIME PT NODS YES WHEN ASKED IF IN PAIN. SON AT BEDSIDE FOR MAJORITY OF SHIFT. NO OTHER ACUTE CHANGES NOTED DURING SHIFT. WILL CONTINUE TO MONITOR UNTIL REPORT GIVEN TO ONCOMING RN.
--- NOTE | 2018-12-20 06:10 | NUR ---
SHIFT SUMMARY PT OPENS EYES TO VERBAL STIMULI, BLINKS, MOVES BUE OCCASIONALLY TO ITCH FACE SAYS "YES, NO & HELLO." DORMAN IS PATENT & DRAINING DARK YELLOW URINE, HAD 150ML TOTAL OUTPUT T/O SHIFT. PT TURNED & REPOSITIONED Q2H. ORAL CARE PERFORMED. PT SHOWS PAIN BY FURROWING EYEBROWS, RESTLESSNESS & EVEN STATED "YES" 1X WHEN ASKED IF SHE WAS IN PAIN; MEDICATED 4X W/MORPHINE FOR PAIN PER ORDERS. CALL LIGHT IS IN REACH & I WILL CONT TO MONITOR PT.
--- NOTE | 2018-12-20 08:10 | NUR ---
PT IN NO APPARENT DISTRESS. NO DYSPNEA/SOB/SECRETIONS. NO FAMILY MEMBERS PRESENT. DORMAN PATENT & DRAINING. PT REPOSITIONED. WCTM.
--- NOTE | 2018-12-20 09:56 | NUR ---
MEDICATED FOR PAIN PER EMAR. NO DYSPNEA/SOB/SECRETIONS. FAMILY PRESENT IN ROOM. WCTM.
--- NOTE | 2018-12-20 12:16 | NUR ---
PT IN NO APPARENT DISTRESS. NO DYSPNEA/SOB/SECRETIONS. FAMILY MEMBER PRESENT. WCTM.
--- NOTE | 2018-12-20 14:16 | NUR ---
PT IN NO APPARENT DISTRESS / NO C/O PAIN. NO SOB/DYSPNEA/SECRETIONS; SCOPOLAMINE TOP REMOVED. NO FAMILY MEMBERS PRESENT. WCTM.
--- NOTE | 2018-12-20 16:05 | NUR ---
MEDICATED FOR PAIN PER EMAR. NO DYSPNEA/SOB/SECRETIONS. FAMILY MEMBERS PRESENT. WCTM.
--- NOTE | 2018-12-20 18:11 | NUR ---
PT IN NO APPARENT DISTRESS. NO DYSPNEA/SOB/SECRETIONS. NO FAMILY MEMBERS PRESENT. WCTM.
--- NOTE | 2018-12-20 19:05 | NUR ---
SHIFT SUMMARY: NO ACUTE CHANGES TO REPORT THIS SHIFT. PATIENT ON COMFORT CARE. MEDICATED FOR PAIN & ANXIETY PER EMAR. NO SOB/SECRETIONS/DYSPNEA. DORMAN IN PLACE - PATENT & DRAINING. REPORT GIVEN TO ONCOMING RN.
--- NOTE | 2018-12-20 19:35 | NUR ---
Son Oscar at bedside supportive. PT nonverbal. Per day RN report had spoken 2 words during 12 hour day shift.
--- NOTE | 2018-12-20 19:59 | NUR ---
brief visit today with theraputic time. pt not verbal frequent unequal eye movement and head swing still remains. reassurance to pt about son and theaputic touch.
--- NOTE | 2018-12-20 21:24 | NUR ---
PT ROUSES AND DID SPEAK AND HELLO . APPEARS TO HAVE SOME PURPOSEFUL MOVEMENT. SON FINESSE IN AND SUPPORTIVE.
--- NOTE | 2018-12-21 01:18 | NUR ---
pt continues to say relevent things intermittantly. she said hello clearly then drifts back to sleep. Son Oscar was in and supportive and says he is aware PT would not want usp artificial nutrition. She does nod head when asked questions. unable to follow commands and denies pain or acute distress. clamps mouth tightly closed when oral care given. continues on comfort care after anoxic brain injury. skin warm dry pink. skin care given. painting patent.
--- NOTE | 2018-12-21 04:59 | NUR ---
pt with intermittant verbalizations or eye opening. she has no s,sx of pain. She does continue to clamp mouth closed when oral care is attempted. tounge rounded and full making difficult to provide oral care. Son said he knows Mother desires no artificial nutrition or hydration and she is unable to track or follow commands. intermittant verbalizations one word. other times she appears to be attempting to speak but always quickly dozes back to comfortable sleeping state. continues to produce urine out via painting despite no iv or oral fluids in extended period of time. comfort care continues.
--- NOTE | 2018-12-21 06:46 | NUR ---
Son Oscar in and supportive of comfort care and no artificial hydration or nutrition. she does not have formal POLST or advanced directive but that did not to be kept alive. offered support and he says he tries daily to offer water and she refuses anything.
--- NOTE | 2018-12-21 08:04 | NUR ---
PT IN NO APPARENT DISTRESS. NO DYSPNEA/SOB/SECRETIONS. NO FAMILY MEMBERS PRESENT. PT REPOSITIONED. WCTM.
--- NOTE | 2018-12-21 10:14 | NUR ---
PT IN NO APPARENT DISTRESS. NO DYSPNEA/SOB/SECRETIONS. NO FAMILY MEMBERS PRESENT. WCTM.
--- NOTE | 2018-12-21 12:29 | NUR ---
PT IN NO APPARENT DISTRESS. NO DYSPNEA/SOB/SECRETIONS. FAMILY IN ROOM. WCTM.
--- NOTE | 2018-12-21 14:45 | NUR ---
PT IN NO APPARENT DISTRESS. NO DYSPNEA/SOB/SECRETIONS. FAMILY PRESENT IN ROOM. WCTM.
--- NOTE | 2018-12-21 17:40 | NUR ---
PATIENT IN NO APPARENT DISTRESS. NO DYSPNEA/SOB/SECRETIONS. FAMILY PRESENT IN ROOM. WCTM.
--- NOTE | 2018-12-21 18:39 | NUR ---
SHIFT SUMMARY: NO ACUTE CHANGES TO REPORT THIS SHIFT. COMFORT CARE MEASURES CONTINUING. MEDICATED FOR PAIN PER EMAR. DORMAN IN PLACE; PATENT & DRAINING. WCTM.
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
--- NOTE | 2018-12-22 06:12 | NUR ---
PT CONTINUES TO APPEAR COMFORTABLE NPO UNABLE TO SWALLOW. VERY DIFFICULT TO DO ORAL CARE DUE TO PT CLAMPS MOUTH SHUT. LONGTIME FRIEND AT BEDSIDE SUPPORTIVE.
--- NOTE | 2018-12-22 07:52 | NUR ---
MEDICATED FOR PAIN PER EMAR. NO DYSPNEA/SOB/SECRETIONS. FAMILY PRESENT. WCTM.
--- NOTE | 2018-12-22 09:13 | NUR ---
PT IN NO APPARENT DISTRESS. NO DYSPNEA/SOB/SECRETIONS. PT REPOSITIONED. NO FAMILY MEMBERS PRESENT. WCTM.
--- NOTE | 2018-12-22 10:41 | NUR ---
late entry pt seen last evening comfortable visitors at bedside.
--- NOTE | 2018-12-22 10:42 | NUR ---
PT IN NO APPARENT DISTRESS. NO DYSPNEA/SOB/SECRETIONS. NO FAMILY MEMBERS PRESENT. WCTM.
--- NOTE | 2018-12-22 11:26 | NUR ---
STAFF GAVE PT A BED BATH, CHANGED LINEN AND REPOSITIONED PT
--- NOTE | 2018-12-22 12:52 | NUR ---
MEDICATED FOR PAIN PER EMAR. NO DYSPNEA/SOB/SECRETIONS. NO FAMILY MEMBERS PRESENT. WCTM.
--- NOTE | 2018-12-22 15:21 | NUR ---
PT IN NO APPARENT DISTRESS. NO DYSPNEA/SECRETIONS. NO FAMILY PRESENT. WCTM.
--- NOTE | 2018-12-22 17:31 | NUR ---
PT IN NO APPARENT DISTRESS. NO DYSPNEA/SECRETIONS. NO FAMILY MEMBERS PRESENT. WCTM.
--- NOTE | 2018-12-22 17:33 | NUR ---
breif checks throughout the day. pt less eye opening and breathing more even. urine output has declined. no family at bedside.
--- NOTE | 2018-12-22 17:45 | NUR ---
SHIFT SUMMARY: NO ACUTE CHANGES TO REPORT THIS SHIFT. MEDICATED FOR PAIN PER EMAR. NO DYSPNEA/SECRETIONS. DORMAN IN PLACE; PATENT AND DRAINING. PT NON-VERBAL. COMFORT CARE MEASURES CONTINUING. WCTM.
--- NOTE | 2018-12-22 20:35 | NUR ---
pt sleeping comfortable
--- NOTE | 2018-12-22 23:41 | NUR ---
resting comfortably after 4 mg morphine given on comfort care. PT not very responsive nonverbal and extremities are cool hands and feet starting to become dusky.
--- NOTE | 2018-12-23 05:20 | NUR ---
PT APPEARS TO BE REANSITIONING WITH HANDS AND FEET COOL AND DUSKY. NO VERBALIZATIONS. KEEPS EYES OPEN AND ALLOWS ORAL ARE. RELAXED AND COMFORTABLE AFTER ANOXIC BRAIN INJURY WITHOUT RECOVERY OF MOST FUNCTION.
--- NOTE | 2018-12-23 07:41 | NUR ---
PT was admitted with anoxic brain injury and was placed on comfort care for extended period and Family and Friends were supportive of PT's desires for no extended efforts to sustain life. Peaceful passing with massage of hands and feet, face and eye care given. Son Friend and Sister notified of Peaceful passage. Son asks for Creamation service off list. called back with [facility] Directors. Personal belongings in Pt belonging area and Son to molded goods spot picker when weather clears.
== END 2018-12-23 06:16 | DRG 871 ==
LOC: ER 17:52 → MEDS 19:54 → ICUW 19:54 → MEDS 12-02 16:51 → ENPENDDIS 12-06 02:23 → EDPENDDIS 12-06 02:23 → MEDS 12-23 06:16
PROVIDERS: Emergency Medicine; Family Medicine; Internal Medicine; Internal Medicine Critical Care Medicine; Nurse Practitioner Acute Care; ADMIT Hospitalist
PROC: 0BH17EZ Insertion of Endotracheal Airway into Trachea, Via Natural or Artificial Opening (ICD-10-PCS; principal; 2018-11-17)
PROC: 4A00X4Z Measurement of Central Nervous Electrical Activity, External Approach (ICD-10-PCS; 2018-11-17)
PROC: 5A1945Z Respiratory Ventilation, 24-96 Consecutive Hours (ICD-10-PCS; 2018-11-17)
DX: A41.9 Sepsis, unspecified organism (principal); J69.0 Pneumonitis due to inhalation of food and vomit; G92 Toxic encephalopathy; J96.01 Acute respiratory failure with hypoxia; I21.3 ST elevation (STEMI) myocardial infarction of unspecified site; E87.2 Acidosis; G93.1 Anoxic brain damage, not elsewhere classified; I48.92 Unspecified atrial flutter; N39.0 Urinary tract infection, site not specified; R40.3 Persistent vegetative state; Z68.41 Body mass index [BMI] 40.0-44.9, adult; Z99.11 Dependence on respirator [ventilator] status; R65.20 Severe sepsis without septic shock; E03.9 Hypothyroidism, unspecified; E11.59 Type 2 diabetes mellitus with other circulatory complications; E66.01 Morbid (severe) obesity due to excess calories; E86.0 Dehydration; E87.6 Hypokalemia; F41.9 Anxiety disorder, unspecified; Z66 Do not resuscitate; D50.9 Iron deficiency anemia, unspecified; Z95.2 Presence of prosthetic heart valve; I10 Essential (primary) hypertension; Z91.5 Personal history of self-harm; I48.91 Unspecified atrial fibrillation; R40.2421 Glasgow coma scale score 9-12, in the field [EMT or ambulance]
CPT/HCPCS: 31500; 31720; 36415; 36569; 36600; 51702; 70450; 71045; 71260; 80048; 80053; 80069; 80202; 81001; 81003; 82140; 82550; 82553; 82728; 82803; 82947; 83540; 83550; 83605; 83735; 83880; 84100; 84132; 84295; 84439; 84443; 84481; 84484; 85007; 85014; 85018; 85025; 85027; 85610; 85730; 87040; 87070; 87077; 87186; 87205; 87486; 87581; 87633; 87798; 93005; 93010; 93306; 94002; 94003; 94640; 95819; 96365; 96375; 99291-25; 99292; C1751; C9113; G0480; J1200; J1644; J1650; J1815; J1940; J1956; J2060; J2270; J2310; J2543; J2920; J2930; J3010; J3370; J3480; J7030; J7040; J7050; J7120; Q9967